=== PATIENT | female | born 1960 | race Caucasian/White ===

== ENCOUNTER 2019-02-02 11:03 | Emergency (ER) | payer MEDICARE ==
--- NOTE | 2019-02-02 15:12 | ED ---
Psychiatric Complaint - HPI Summary HPI Summary: Pt here requesting ativan as she is out of this medication and has been having panic attacks. Reports she was living in [place] and decided to go to [place] for her "well-being" as she was having difficulty healing past traumas in [place] where she was residing. Upon moving to [place] she realized this was not a place for her to heal and so decided to come back to her home state of [place] (born in [place] and raised in the [facility]). She feels like [place] is a good place for her to be however she is upset in her new home which is a "55 and older residence facility" - feels she is much younger than her cohorts and the milieu is depressing. She has been here in [place] for 9 days and has not been able to link up with a new PCP/counselor/psychiatrist but is eagerly looking to make this connection today. Currently, she reports taking Remeron ( dose unknown), hydroxyzine (dose unknown) when necessary for anxiety and Ativan 1 mg twice a day. States she has plenty of hydroxyzine and Remeron but has run out of Ativan due to increased anxiety over her travels, specifically due to traveling with a "crying cat in a crate for 24 hours" and feeling waves of panic in her new residence. She is also worried about stopping Ativan abruptly as she's been taking it daily for years. She denies suicidal or homicidal ideations - is hopeful about living in [place] and would like to get linked in with primary care and counseling services. - History Of Current Complaint Chief Complaint: EDPrescriptionNeeded Time Seen by Provider: 02/02/19 12:36 Hx Obtained From: Patient - Allergies/Home Medications Allergies/Adverse Reactions: Allergies Allergy/AdvReac Type Severity Reaction Status Date / Time No Known Allergies Allergy Verified 02/02/19 11:09 PMH/Surg Hx/FS Hx/Imm Hx Previously Healthy: Yes Psychiatric History: Reports: Hx Anxiety, Other Psychiatric Issues/Disorders - insomnia, h/o trauma per pt Infectious Disease History: No Infectious Disease History: Denies: Traveled Outside the [place] in Last 30 Days - Family History Known Family History: Positive: Unknown - Social History Occupation: Unemployed Lives: Alone Alcohol Use: Occasionally Hx Substance Use: No - per pt, takes daily rx'd ativan Substance Use Type: Reports: None Hx Tobacco Use: No Smoking Status (MU): Never Smoked Tobacco Review of Systems Constitutional: Negative Eyes: Negative ENT: Negative Cardiovascular: Negative Respiratory: Negative Gastrointestinal: Negative Positive: no symptoms reported Musculoskeletal: Negative Skin: Negative Neurological: Negative Positive: Anxious All Other Systems Reviewed And Are Negative: Yes Physical Exam Triage Information Reviewed: Yes Vital Signs On Initial Exam: Initial Vitals Temp Pulse Resp BP Pulse Ox 99.2 F 77 16 161/95 97 02/02/19 11:04 02/02/19 11:04 02/02/19 11:04 02/02/19 11:04 02/02/19 11:04 Vital Signs Reviewed: Yes Appearance: Positive: Thin - appears comfortable on stretcher in fast track - ate soup w/o difficuty; pleasant; becomes anxious and near tears when describing her journey here from [place] via [employer] - requesting medication to bridge her until she can get PCP/mental health services - would like referrals today - denies SI/HI Skin: Positive: Warm, Skin Color Reflects Adequate Perfusion, Dry Head/Face: Positive: Normal Head/Face Inspection Eyes: Positive: EOMI ENT: Positive: Hearing grossly normal, Pharynx normal - mucosa moist Respiratory/Lung Sounds: Positive: Breath Sounds Present Cardiovascular: Positive: Normal Musculoskeletal: Positive: Strength/ROM Intact Neurological: Positive: Alert, Oriented to Person Place, Time, CN Intact II-III Psychiatric: Positive: Anxious - reasonable insight, appropriate affect, anxious but consolable and denies SI/HI - hopeful to live in [place], get "Well" and would never "do that to her cat" when asked about self-harm - [place] Coma Scale Best Eye Response: 4 - Spontaneous Best Motor Response: 6 - Obeys Commands Best Verbal Response: 5 - Oriented Coma Scale Total: 15 Diagnostics - Vital Signs Vital Signs Temp Pulse Resp BP Pulse Ox 02/02/19 11:04 99.2 F 77 16 161/95 97 - Laboratory Lab Statement: Any lab studies that have been ordered have been reviewed, and results considered in the medical decision making process. Course/Dx - Course Course Of Treatment: ISTOP does not reveal any controlled substances have been filled however CA was not an option for evaluation on site. Trusting pt has good intentions and observing a clear level of anxiety, will provide short course of ativan as per pt's current dosing for a 3 day supply. She was also given a dose prior to departure as she has to take a cab straight home. She agrees to f/u w/ PCP via [facility] tomorrow for better continuous care options. She's also aware of danger s/sx of when to return to ED. She does not appear to have withdrawal signs of benzo's here today but is aware of the potential dangers. - Differential Dx/Clinical Impression Provider Diagnosis: Anxiety, Medication refill Discharge - Sign-Out/Discharge Documenting (check all that apply): Patient Departure Patient Received Moderate/Deep Sedation with Procedure: No - Discharge Plan Condition: Stable Disposition: HOME Prescriptions: LORazepam TAB(*) [Ativan 1 MG TAB (*)] 1 mg PO BID #6 tab MDD 2 Patient Education Materials: Anxiety (ED) Referrals: [facility] [Outside] [facility] [Outside] Additional Instructions: It is important that you link up with local services to establish as a new patient, have medical and mental health access. Contact the following services below tomorrow to schedule appointments for this week: *Call [facility] to establish with PCP *Call [facility] to establish with counselor and psychiatrist *If in the meantime you develop thoughts of harming yourself or others, call 911 or return to the ED - Billing Disposition and Condition Condition: STABLE Disposition: Home
[2019-02-02] MEDS ORDERED: LORazepam TAB(*) 1 MG PO ONE (15:22)
[2019-02-02 15:40] VITALS: BP 144/52
== END 2019-02-02 15:39 | disposition home or self-care (01) ==
LOC: ED 11:03
DX: F41.9 Anxiety disorder, unspecified (principal); Z76.0 Encounter for issue of repeat prescription
CPT/HCPCS: 99282; A9270-GY

== ENCOUNTER 2019-07-24 15:49 | Emergency (ER) | payer MEDICARE, MEDICAID ==
--- OUTSIDE RECORDS SUMMARY | 2019-07-24 16:10 | XMS REPORT | Continuity of Care Document ---
:1960 External Reference #:[id number] Author Name Soraya Mendoza NP (transmitted by agent of provider Moira Pettit) Address [address], [place] [address] Care Team Providers Name Role Phone Garrett Anderson MD - Hospitalist Care Team Information Adjunct Business Instructor [phone] Problems Description No Information Available Social History Type Date Description Comments Sex Unknown Tobacco Use Start: Unknown Never Smoked Cigarettes Smoking Status Reviewed: 06/03/19 Never Smoked Cigarettes ETOH Use Denies alcohol use Tobacco Use Start: Unknown Patient has never smoked Exercise Type/Frequency Exercises regularly Allergies, Adverse Reactions, Alerts Description No Known Drug Allergies Medications Active Medications SIG Qnty Indications Ordering Provider Date Remeron 1 tablet every 30tabs Garrett Anderson MD 02/05/2019 15mg Tablets night at bedtime Lorazepam 1 tablet twice a 60tabs Garrett Anderson MD 1mg Tablets day Aspirin Adult takes 2tabs qid Unknown 325mg Tablets [place] 1 by mouth every Unknown 565mg day Capsules Oregan Unknown Syriac Knotweed Unknown Grapeseed Extract Unknown Vitamin A Unknown [id number] Capsules Vitamin C 1 by mouth every Unknown 500mg day Capsules Vitamin E-200 1 by mouth every Unknown 200Unit day Capsules Vitamin D 1 by mouth every Unknown 2000Unit day Capsules L-Arginine Unknown 500mg Capsules Perlita Unknown Immunizations Description No Information Available Vital Signs Date Vital Result Comment 06/03/2019 10:52am Height 65 inches 5'5" Weight 123.00 lb Heart Rate 76 /min BP Systolic 129 mmHg BP Diastolic 78 mmHg Body Temperature 97.1 F O2 % BldC Oximetry 100 % BMI (Body Mass Index) 20.5 kg/m2 04/29/2019 11:37am Height 65 inches 5'5" Weight 119.00 lb Heart Rate 71 /min BP Systolic 117 mmHg BP Diastolic 70 mmHg Body Temperature 97.6 F O2 % BldC Oximetry 99 % BMI (Body Mass Index) 19.8 kg/m2 Results Test Acquired Date Facility Test Result H/L Range Note CBC Auto 04/12/2019 [facility] White Blood 9.6 10^3/uL Normal 3.5-10.[address] [place] [address] [phone] Red Blood Count 4.59 10^6/uL Normal 3.70-4.87 Hemoglobin 13.6 g/dL Normal 12.0-16.0 Hematocrit 41 % Normal 35-47 Mean Corpuscular Volume 89 fL Normal 80-97 Mean Corpuscular Hemoglobin 30 pg Normal 27-31 Mean Corpuscular HGB Conc 33 g/dL Normal 31-36 Red Cell Distribution Width 13 % Normal 10-15 Platelet Count 215 10^3/uL Normal 150-450 Mean Platelet Volume 9.6 fL Normal 7.4-10.4 Abs Neutrophils 8.1 10^3/uL High 1.5-7.7 Abs Lymphocytes 0.9 10^3/uL Low 1.0-4.8 Abs Monocytes 0.5 10^3/uL Normal 0-0.8 Abs Eosinophils 0.1 10^3/uL Normal 0-0.6 Abs Basophils 0.0 10^3/uL Normal 0-0.2 Abs Nucleated RBC 0.0 10^3/uL Granulocyte % 84.2 % Lymphocyte % 9.5 % Monocyte % 4.8 % Eosinophil % 1.3 % Basophil % 0.2 % Nucleated Red Blood Cells % 0.1 Laboratory test 04/12/2019 [facility] Magnesium 2.1 mg/dL Normal 1.9-2.[address] [place] [address] [phone] CRP High Sensitivity 0.28 mg/L <2.00 T3 Free 3.40 pg/mL Normal 2.5-3.9 T3 Total 107 ng/dL Normal 87-178 Thyroperoxidase AB 79.15 IU/mL High <9 Arthritis Panel 04/12/2019 [facility] Uric Acid 3.2 mg/dL Normal 2.3-6.6 [address] [place] [address] [phone] Rheumatoid Factor < 10 IU/mL Normal <15 Erythrocyte Sed Rate 4 mm/Hr Normal 0-29 Anti-Nuclear Antibody 0.1 U 1 Cyclic Citrullinated Peptide <15.6 U 2 Interpretation See Comment 3 Laboratory test 04/12/2019 [facility] Homocysteine 10 mcmol/L 4 finding [address] [place] [address] [phone] Cat Scratch 04/12/2019 [facility] Bartonella <1:128 titer <1: 12 Fever Panel [address] [facility] [place] IgG 8 [place] [address] [phone] Bartonella [place] IgM <1:20 titer <1:20 Bartonella Lewis IgG 1:256 titer Abnormal <1:128 5 Bartonella Lewis IgM <1:20 titer <1:20 6 Heavy Metal Blool 04/12/2019 [facility] Arsenic <1 ng/mL 0- 12 7 [address] [place] [address] [phone] Lead 1.3 g/dL 0.0-4.9 8 Mercury <1 ng/mL 0-9 9 Cadmium 0.3 ng/mL 0.0-4.[address] [place] [address] Guardian First Name MARISSA Guardian Last Name NICOLA Venous/Capillary Heavy Metals Venous Patient Race WHITE Submitting Laboratory 11 Transglutaminase Igg 04/12/2019 [facility] Tissue <1.2 12 & Iga [address] [facility] Transglutaminase IgA U/[place] [address] Ab [phone] Tissue Transglutaminase IgG Ab 1.4 U/mL 13 Anti Gliadin Igg And Iga 04/12/2019 [facility] Gliadin IgG < 10.0 U 14 AB [address] [place] [address] [phone] Gliadin IgA <10.0 U 15 Laboratory test 04/12/2019 [facility] Vitamin A 74.4 g/dL 32.5-78.[address] (Retinol) [place] [address] [phone] T3 Reverse 13 ng/dL 10-24 17 Celiac Hla 04/12/2019 [facility] [id number] SEE BELOW [address] [place] [address] [phone] [id number] SEE BELOW 19 Celiac Gene Pairs Present? Equivocal Celiac Gene Interpretation See Comment 20 Laboratory test 04/12/2019 [facility] Vitamin E 11.9 mg/L 5.5 - 17.[address] [place] [address] [phone] Complement C4a Main Lab Only 1563 ng/mL 0-2830 22 Laboratory test 04/07/2019 [facility] Miscellaneous Test < pending> finding [address] [place] [address] [phone] Laboratory test 04/07/2019 [facility] Vitamin D Total <pending> finding [address] 25(Oh) [place] [address] [phone] Thyroperoxidase AB <pending> T3 Free <pending> T3 Reverse <pending> T3 Total <pending> Homocysteine <pending> Complement C4a Main Lab Only <pending> Vitamin E Level <pending> Vitamin A (Retinol) <pending> Laboratory test finding 04/07/2019 [facility] Zinc Serum < pending> [address] [place] [address] [phone] Copper, Serum <pending> Laboratory test 04/07/2019 [facility] CRP High <pending> finding [address] [place] [address] [phone] CBC Auto Diff 03/21/2019 [facility] White Blood 4.6 10^3/uL Normal 3.5- [address] Count 10.8 [place] [address] [phone] Red Blood Count 4.95 10^6/uL High 3.70-4.87 Hemoglobin 14.8 g/dL Normal 12.0-16.0 Hematocrit 43 % Normal 35-47 Mean Corpuscular Volume 87 fL Normal 80-97 Mean Corpuscular Hemoglobin 30 pg Normal 27-31 Mean Corpuscular HGB Conc 34 g/dL Normal 31-36 Red Cell Distribution Width 13 % Normal 10-15 Platelet Count 246 10^3/uL Normal 150-450 Mean Platelet Volume 10.0 fL Normal 7.4-10.4 Abs Neutrophils 2.9 10^3/uL Normal 1.5-7.7 Abs Lymphocytes 1.3 10^3/uL Normal 1.0-4.8 Abs Monocytes 0.3 10^3/uL Normal 0-0.8 Abs Eosinophils 0.1 10^3/uL Normal 0-0.6 Abs Basophils 0.0 10^3/uL Normal 0-0.2 Abs Nucleated RBC 0.0 10^3/uL Granulocyte % 62.0 % Lymphocyte % 27.4 % Monocyte % 6.8 % Eosinophil % 2.8 % Basophil % 1.0 % Nucleated Red Blood Cells % 0.1 CBC Auto 03/01/2019 [facility] White Blood 2.8 10^3/uL Low 3.5 -10.[address] [place] [address] [phone] Red Blood Count 4.43 10^6/uL Normal 3.70-4.87 Hemoglobin 13.4 g/dL Normal 12.0-16.0 Hematocrit 39 % Normal 35-47 Mean Corpuscular Volume 88 fL Normal 80-97 Mean Corpuscular Hemoglobin 30 pg Normal 27-31 Mean Corpuscular HGB Conc 35 g/dL Normal 31-36 Red Cell Distribution Width 13 % Normal 10-15 Platelet Count 146 10^3/uL Low 150-450 Mean Platelet Volume 10.2 fL Normal 7.4-10.4 Abs Neutrophils 1.5 10^3/uL Normal 1.5-7.7 Abs Lymphocytes 0.9 10^3/uL Low 1.0-4.8 Abs Monocytes 0.3 10^3/uL Normal 0-0.8 Abs Eosinophils 0.1 10^3/uL Normal 0-0.6 Abs Basophils 0.0 10^3/uL Normal 0-0.2 Abs Nucleated RBC 0.0 10^3/uL Granulocyte % 55.1 % Lymphocyte % 31.9 % Monocyte % 9.2 % Eosinophil % 2.7 % Basophil % 1.1 % Nucleated Red Blood Cells % 0.1 Comp Metabolic 03/01/2019 [facility] Sodium 142 mmol/L Normal 135-[address] [place], [place] [address] [phone] Potassium 4.4 mmol/L Normal 3.5-5.0 Chloride 106 mmol/L Normal 101-111 Co2 Carbon Dioxide 29 mmol/L Normal 22-32 Anion Gap 7 mmol/L Normal 2-11 Glucose 74 mg/dL Normal 70-100 Blood Urea Nitrogen 15 mg/dL Normal 6-24 Creatinine 0.91 mg/dL Normal 0.51-0.95 BUN/Creatinine Ratio 16.5 Normal 8-20 Calcium 8.9 mg/dL Normal 8.6-10.3 Total Protein 5.8 g/dL Low 6.4-8.9 Albumin 4.1 g/dL Normal 3.2-5.2 Globulin 1.7 g/dL Low 2-4 Albumin/Globulin Ratio 2.4 Normal 1-3 Total Bilirubin 0.50 mg/dL Normal 0.2-1.0 Alkaline Phosphatase 53 U/L Normal 34-104 Alt 12 U/L Normal 7-52 Ast 16 U/L Normal 13-39 Egfr Non- 63.5 >60 Egfr 76.8 >60 23 Laboratory test 03/01/2019 [facility] Lyme Screen Negative Negative [address] W/ [place] [address] WB [phone] Erythrocyte Sed Rate 1 mm/Hr Normal 0-29 TSH (Thyroid Stim Horm) 2.25 mcIU/mL Normal 0.34-5.60 Laboratory test 02/05/2019 [facility] Vitamin B12 455 pg/mL Normal 180-914 25 [place] [address] [phone] Lipid Profile 02/05/2019 [facility] Triglycerides 105 mg/dL 26 (Trig/Chol/HDL) [place] [address] [phone] Cholesterol 173 mg/dL 27 HDL Cholesterol 78.1 mg/dL 28 LDL Cholesterol 74 mg/dL 29 Hepatitis C Antibody 02/05/2019 [facility] HCV Index 0.00 s/c [address] [place] [address] [phone] Hepatitis C Antibody Negative Negative Laboratory test 02/05/2019 [facility] TSH (Thyroid <pending> finding Stim Horm) [place] [address] [phone] Erythrocyte Sed Rate <pending> Vitamin D Total 25(Oh) <pending> Lyme Screen W/ Reflex To WB <pending> 1 REFERENCE VALUE <=1.0 (Negative) 2 REFERENCE VALUE <20.0 (Negative) 3 Tests for antibodies to dsDNA and SAMIR antigens are not performed automatically unless the CHIRAG result is > or = 3.0 U. Studies performed at [facility] indicate that positive CHIRAG results <3.0 U are rarely accompanied by positive second order tests. Test Performed by: [facility] [employer] - [facility] [address] [place] [address] Emergency Dept Tech: Thong Manzo M.D. Ph.D.; CLIA# [id number] 4 REFERENCE VALUE <=13 (Fasting) ADDITIONAL INFORMATION This test was developed and its performance characteristics determined by [facility] in a manner consistent with CLIA requirements. This test has not been cleared or approved by the U.S. Food and Drug Administration. Test Performed by: [facility] [employer] - [address] [address] Emergency Dept Tech: Thong Manzo M.D. Ph.D.; CLIA# [id number] 5 Results suggest recent infection. 6 ADDITIONAL INFORMATION This test was developed and its performance characteristics determined by [facility] in a manner consistent with CLIA requirements. This test has not been cleared or approved by the U.S. Food and Drug Administration. Test Performed by: [facility] [place] [address] Emergency Dept Tech: Thong Manzo M.D. Ph.D.; CLIA# [id number] 7 ADDITIONAL INFORMATION This test was developed and its performance characteristics determined by [facility] in a manner consistent with CLIA requirements. This test has not been cleared or approved by the U.S. Food and Drug Administration. 8 ADDITIONAL INFORMATION Testing performed by Inductively Coupled Plasma-Mass Spectrometry (ICP-MS). This test was developed and its performance characteristics determined by [facility] in a manner consistent with CLIA requirements. This test has not been cleared or approved by the U.S. Food and Drug Administration. 9 ADDITIONAL INFORMATION This test was developed and its performance characteristics determined by [facility] in a manner consistent with CLIA requirements. This test has not been cleared or approved by the U.S. Food and Drug Administration. 10 ADDITIONAL INFORMATION This test was developed and its performance characteristics determined by [facility] in a manner consistent with CLIA requirements. This test has not been cleared or approved by the U.S. Food and Drug Administration. 11 Test Performed by: [facility] [employer] - [address] [address] Emergency Dept Tech: Thong Manzo M.D. Ph.D.; CLIA# [id number] 12 REFERENCE VALUE <4.0 (Negative) 13 REFERENCE VALUE <6.0 (Negative) Test Performed by: [facility] [place] [address] Emergency Dept Tech: Thong Manzo M.D. Ph.D.; CLIA# [id number] 14 REFERENCE VALUE <20.0 (Negative) Test Performed by: [facility] [place] [address] Emergency Dept Tech: Thong Manzo M.D. Ph.D.; CLIA# [id number] 15 REFERENCE VALUE <20.0 (Negative) 16 ADDITIONAL INFORMATION This test was developed and its performance characteristics determined by [facility] in a manner consistent with CLIA requirements. This test has not been cleared or approved by the U.S. Food and Drug Administration. Test Performed by: [facility] [place] [address] Emergency Dept Tech: Thong Manzo M.D. Ph.D.; CLIA# [id number] 17 ADDITIONAL INFORMATION This test was developed and its performance characteristics determined by [facility] in a manner consistent with CLIA requirements. This test has not been cleared or approved by the U.S. Food and Drug Administration. Test Performed by: [facility] [place] [address] Emergency Dept Tech: Thong Manzo M.D. Ph.D.; CLIA# [id number] 18 RESULT: 01,02:01 REFERENCE VALUE Not Applicable 19 RESULT: 02:02,05:01 DQ Serologic Equivalent: 2,5 REFERENCE VALUE Not Applicable 20 While the patient lacks the gene pairs usually seen in celiac disease, there are rare exceptions in which celiac disease can occur with only one half of the gene pair (1% of all celiac) making celiac disease very unlikely. However, these genes can also be present in the normal population. ADDITIONAL INFORMATION Method: Molecular typing of HLA antigens performed using reverse SSOP and/or SSP methods, reported as serological equivalents and low to medium resolution molecular values. Test Performed by: [facility] [place] [address] Emergency Dept Tech: Thong Manzo M.D. Ph.D.; CLIA# [id number] 21 ADDITIONAL INFORMATION This test was developed and its performance characteristics determined by [facility] in a manner consistent with CLIA requirements. This test has not been cleared or approved by the U.S. Food and Drug Administration. Test Performed by: [facility] - [facility] [address] [place] [address] Emergency Dept Tech: Thong Manzo M.D. Ph.D.; CLIA# [id number] 22 ADDITIONAL INFORMATION This test uses a kit/reagent designated by the job placement specialist as for research use, not for clinical use. The performance characteristics of this test have been validated by [facility]. It has not been cleared or approved by the U.S. Food and Drug Administration. The results are not intended to be used as the sole means for clinical diagnosis or patient management decisions. This laboratory is certified under the Clinical Laboratory Improvement Amendments of 1988 (CLIA-88) as qualified to perform high complexity clinical laboratory testing. Test Performed by: [facility] [address] [place] [id number] 23 Because ethnic data is not always readily available, this report includes an eGFR for both -Americans and non- Americans. The National Kidney Disease Education Program (NKDEP) does not endorse the use of the MDRD equation for patients that are not between the ages of 18 and 70, are , have extremes of body size, muscle mass, or nutritional status, or are non- or non-. According to the National Kidney Foundation, irrespective of diagnosis, the stage of the disease is based on the level of kidney function: Stage Description GFR(mL/min/1.73 m(2)) 1 Kidney damage with normal or decreased GFR 90 2 Kidney damage with mild decrease in GFR 60-89 3 Moderate decrease in GFR 30-59 4 Severe decrease in GFR 15-29 5 Kidney failure <15 (or dialysis) 24 PT DOESNT WANT TO HAVE VD25 DONE, DUE TO ABN. [id number] 25 Normal Range 180 to 914 Indeterminate Range 145 to 180 Deficient Range <145 26 Desirable: <150 Borderline High: 150-199 High: 200-499 Very High: >500 27 Desirable: <200 Borderline High: 200-239 High: >239 28 Low: <40 Desirable: 40-60 High: >60 29 Desirable: <100 Near Optimal: 100-129 Borderline High: 130-159 High: 160-189 Very High: >189 Procedures Description No Information Available Medical Devices Description No Information Available Encounters Type Date Location Provider Dx Diagnosis Office Visit 04/29/2019 [facility] Internal Cameron Gay NP R53.82 Chronic fatigue , 11:40a Medicine - Ccmob unspecified G89.4 Chronic pain syndrome Office Visit 04/07/2019 1:00p [facility] Soraya Mendoza, R53.82 Chronic fatigue, [facility] DUNG unspecified G89.4 Chronic pain syndrome K58.8 Other irritable bowel syndrome F41.9 Anxiety disorder, unspecified R51 Headache Office Visit 03/25/2019 12:00p [facility] Internal Garrett Anderson MD F41.1 Generalized anxiety Medicine - Suite disorder R R53.83 Other fatigue F43.12 Post-traumatic stress disorder, chronic R63.6 Underweight Z12.11 Encounter for screening for malignant neoplasm of colon Office Visit 02/05/2019 8:00a [facility] Internal Garrett Anderson MD F41.1 Generalized anxiety Medicine - Suite disorder R F39 Unspecified mood [affective] disorder R53.83 Other fatigue Z00.01 Encounter for general adult medical exam w abnormal findings F43.12 Post-traumatic stress disorder, chronic Z13.220 Encounter for screening for lipoid disorders Z11.59 Encounter for screening for other viral diseases Z12.4 Encounter for screening for malignant neoplasm of cervix Assessments Date Code Description Provider 06/03/2019 R53.82 Chronic fatigue, unspecified Soraya Mendoza, [employer] 06/03/2019 G89.4 Chronic pain syndrome Soraya Mendoza, [employer] 04/29/2019 R53.82 Chronic fatigue, unspecified Cameron Victor Hugo, [employer] 04/29/2019 G89.4 Chronic pain syndrome Cameron Victor Hugo, [employer] 04/07/2019 R53.82 Chronic fatigue, unspecified Soraya Mendoza, [employer] TE[employer] LEADER 04/07/2019 G89.4 Chronic pain syndrome Soraya Mendoza, [employer] TE[employer] LEADER 04/07/2019 K58.8 Other irritable bowel syndrome Soraya Mendoza, [employer] LEADER 04/07/2019 F41.9 Anxiety disorder, unspecified Soraya Mendoza, [employer] LEADER 04/07/2019 R51 Headache Soraya Mendoza, [employer] LEADER 03/25/2019 F41.1 Generalized anxiety disorder Garrett Anderson MD 03/25/2019 R53.83 Other fatigue Garrett Anderson MD 03/25/2019 F43.12 Post-traumatic stress disorder, chronic Garrett Anderson MD 03/25/2019 R63.6 Underweight Garrett Anderson MD 03/25/2019 Z12.11 Encounter for screening for malignant neoplasm Garrett Anderson MD of colon 02/05/2019 F41.1 Generalized anxiety disorder Garrett Anderson MD 02/05/2019 F39 Unspecified mood [affective] disorder Garrett Anderson MD 02/05/2019 R53.83 Other fatigue Garrett Anderson MD 02/05/2019 Z00.01 Encounter for general adult medical Garrett Anderson MD examination with abnorma 02/05/2019 F43.12 Post-traumatic stress disorder, chronic Garrett Anderson MD 02/05/2019 Z13.220 Encounter for screening for lipoid disorders Garrett Anderson MD 02/05/2019 Z11.59 Encounter for screening for other viral Garrett Anderson MD diseases 02/05/2019 Z12.4 Encounter for screening for malignant neoplasm Garrett Anderson MD of cervix Plan of Treatment Future Appointment(s):06/17/2019 1:20 pm - Kit Blevins M.D. at [facility]/12/2019 - Soraya Mendoza, NPR53.82 Chronic fatigue, unspecifiedFollow up:follow up in 4-6 weeks Recommend follow up with Barbara Bryant NP or Gina Wynne for annual Pap.Recommendations:Continue Wahls Protocol - increasing protein, increase healthy fats - focus on 8-10 servings vegetables/day. Smoothies with vegetables/greens and clean protein powder (hemp protein) Recommend LDN (low dose naltrexone) - do research this could be very helpful Recommend Biocidin protocol - I will send this through SHADOW Recommend: B complex (methylated forms) Fish oil or Krill oil - EPA/ DHAG89.4 Chronic pain syndromeRecommendations:Recommend using your medical cannabis script - Continue Anti-inflammatory diet Functional Status Description No Information Available Mental Status Description No Information Available Referrals Refer to Dr Reason for Referral Status Appt Date Kit Blevins MD positive Bartonella Sent 06/17/[address] [place] [address] [place] [address] [phone] Margarito Nugent MD Sent 04/07/2019 [address], [place] [address] [phone]
--- OUTSIDE RECORDS SUMMARY | 2019-07-24 16:10 | XMS REPORT ---
:1960 Author Organization [facility] Care Team Providers Name Role Phone Nory Sotelo Primary Care Physician Unavailable Allergies, Adverse Reactions, Alerts Allergy Code CodeSystem Reaction Severity Criticality Status Start Substance Date nkda Moderate Active Medications Medication Medication Medication Start Stop Route Dose Status Fill Code CodeSystem Date Date Instructions Remeron 731452 RxNorm 2019- oral 15 mg 1 completed Take 1 tablet 03-04 tablet at bedtime at for 30 day(s) bedtime lorazepam RxNorm 2019- oral 1 mg completed for 3 02-02 tablet day(s) mirtazapine 527854 RxNorm 2019- oral 15 mg completed for 30 04-08 tablet day(s) lorazepam RxNorm 2019- oral 1 mg completed for 3 02-02- tablet day(s) lorazepam RxNorm 2019- oral 1 mg 1 completed Take 1 tablet 04-03 tablet by mouth three three times a times a day as needed day for 5 day(s) lorazepam RxNorm 2019- oral 1 mg active for 30 04-08-14 tablet day(s) mirtazapine 606516 RxNorm 2019- oral 15 mg 1 active Take 1 1/2 04-08 1/2 tablet by tablet mouth at at bedtime for bedtime 30 day(s) lorazepam RxNorm 2019- oral 1 mg completed for 3 02-02- tablet day(s) lorazepam RxNorm 2019- oral 1 mg completed for 30 03-04 09-12 tablet day(s) Problems Problem Name Code CodeSystem Alternate Alternate Start End Status Narrative Code CodeSystem Date Date Post-traumat 60490211 SNOMED-CT Active ic stress 8-05 disorder, unspecified Recurrent 06198739 SNOMED-CT 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, current episode moderate Relevant diagnostic tests/laboratory data Narrative No Information Procedures Procedure Code CodeSystem Target Date of Status Service Device Device Device Name Site Procedure Delivery Code Name UID Location Psychotherap [id number] SNOMED-CT () 2019-04-18 complete Mental y, 45 04 d Health- minutes with [place] patient [address], [phone] Psychotherap [id number] SNOMED-CT () 2019-03-04 complete Mental y, 45 04 d Health- minutes with [place] patient [address], [phone] Psychotherap [id number] SNOMED-CT () 2019-03-27 complete Mental y, 45 04 d Health- minutes with [place] patient [address], [phone] Psychotherap [id number] SNOMED-CT () 2019-05-13 complete Mental y, 45 04 d Health- minutes with [place] patient [address], [phone] Psychiatric [id number] SNOMED-CT () 2019-03-04 complete Mental diagnostic 85 d Health- evaluation [place] with [address], [phone] [phone] Office or [id number] SNOMED-CT () 2019-04-08 complete Mental other 7 d Health- outpatient [place] visit for [address] established [id number] patient, [phone] which requires at least 2 of these 3 gaffney components: An expanded problem focused history; An expanded problem focused examination; Medical decision making of [place] Office [place] [id number] SNOMED-CT () 2019-05-06 complete Mental other 6 d Health- outpatient [place] visit for [address], established [phone] patient, [phone] which requires at least 2 of these 3 gaffney components: A problem focused history; A problem focused examination; Straightforw dereck medical decision making. Counselin Office or [id number] SNOMED-CT () 2019-06-05 complete Mental other 6 d Health- outpatient [place] visit for [address], management [place], of an [place], established [phone] patient, [phone] which requires at least 2 of these 3 gaffney components: A problem focused history; A problem focused examination; Straightforw dereck medical decision making. Counselin SNOMED-CT () 2019-04-08 complete Mental d Health[address], [phone] SNOMED-CT () 2019-05-02 complete Mental d Health[address], [id number] SNOMED-CT () 2019-02-10 [facility] Mental d [address], [id number] [phone] Encounters/Encounter Diagnoses Encounter Name Encounter Diagnosis Diagnosis Diagnosis Date of Service Code Code Name CodeSystem Diagnosis Delivery Location [facility] [id number] Post-traumati SNOMED-CT 2019-06-12 Behavioral Individual 30 c stress Health min disorder, Clinic , , unspecified , Vital Signs No Information Social History Element Description Description Start End Code CodeSystem AdditionalInfo Date Date SexAssignedAtBirth Female 1-0 F AdministrativeGender 4-13 Hospital Discharge Instructions Reason For Referral Medical Equipment FDA Assessments
--- OUTSIDE RECORDS SUMMARY | 2019-07-24 16:10 | XMS REPORT | Continuity of Care Document ---
:1960 External Reference #:[id number] Author Name Kit Blevins M.D. (transmitted by agent of provider Savita Yepez ) Address [address] [place] [id number] Care Team Providers Name Role Phone Garrett Anderson MD - Hospitalist Care Team Information Forestry Support Specialist [phone] Problems Description No Information Available Social History Type Date Description Comments Sex Unknown Tobacco Use Start: Unknown Never Smoked Cigarettes Smoking Status Reviewed: 06/17/19 Never Smoked Cigarettes ETOH Use Denies alcohol use Tobacco Use Start: Unknown Patient has never smoked Exercise Type/Frequency Exercises regularly Allergies, Adverse Reactions, Alerts Description No Known Drug Allergies Medications Active Medications SIG Qnty Indications Ordering Provider Date Doxycycline Hyclate 1 cap by mouth 30caps R76.8 Kit Kinney 06/17/2019 twice a day with Jose Blevins 100mg Capsules food Remeron 1 tablet every 30tabs Garrett Anderson MD 02/05/2019 15mg Tablets night at bedtime Lorazepam 1 tablet twice a 60tabs Garrett Anderson MD 1mg Tablets day Aspirin Adult takes 2tabs qid Unknown 325mg Tablets [place] 1 by mouth every Unknown 565mg day Capsules Oregan Unknown Polish Knotweed Unknown Grapeseed Extract Unknown Vitamin A Unknown [id number] Capsules Vitamin C 1 by mouth every Unknown 500mg day Capsules Vitamin E-200 1 by mouth every Unknown 200Unit day Capsules Vitamin D 1 by mouth every Unknown 2000Unit day Capsules L-Arginine Unknown 500mg Capsules Perlita Unknown Immunizations Description No Information Available Vital Signs Date Vital Result Comment 06/17/2019 9:16am Height 65 inches 5'5" Weight 121.38 lb Heart Rate 80 /min BP Systolic Sitting 114 mmHg BP Diastolic Sitting 80 mmHg Respiratory Rate 14 /min Body Temperature 96.9 F BMI (Body Mass Index) 20.2 kg/m2 06/03/2019 10:52am Height 65 inches 5'5" Weight 123.00 lb Heart Rate 76 /min BP Systolic 129 mmHg BP Diastolic 78 mmHg Body Temperature 97.1 F O2 % BldC Oximetry 100 % BMI (Body Mass Index) 20.5 kg/m2 Results Test Acquired Date Facility Test Result H/L Range Note CBC Auto 04/12/2019 [facility] White Blood 9.6 10^3/uL Normal 3.5-10.[address] [place] [address] [phone] Red Blood Count 4.59 10^6/uL Normal 3.70-4.87 [...] Blood Cells % 0.1 Laboratory test 04/12/2019 [facility] Magnesium 2.1 mg/dL Normal 1.9-2.[address] [place] [address] [phone] CRP High Sensitivity 0.28 mg/L <2.00 T3 Free 3.40 pg/mL Normal 2.5-3.9 T3 Total 107 ng/dL Normal 87-178 Thyroperoxidase AB 79.15 IU/mL High <9 Arthritis Panel 04/12/2019 [facility] Uric Acid 3.2 mg/dL Normal 2.3-6.6 [address] [place] [address] [phone] Rheumatoid Factor < 10 IU/mL Normal <15 Erythrocyte Sed Rate 4 mm/Hr Normal 0-29 Anti-Nuclear Antibody 0.1 U 1 Cyclic Citrullinated Peptide <15.6 U 2 Interpretation See Comment 3 Laboratory test 04/12/2019 [facility] Homocysteine 10 mcmol/L 4 finding [address] [place] [address] [phone] Cat Scratch 04/12/2019 [facility] Bartonella <1:128 titer <1: 12 Fever Panel 101 [facility] [place] IgG [address] [place] [address] [phone] Bartonella [place] IgM <1:20 titer <1:20 Bartonella Lewis IgG 1:256 titer Abnormal <1:128 5 Bartonella Lewis IgM <1:20 titer <1:20 6 Heavy Metal Blool 04/12/2019 [facility] Arsenic <1 ng/mL 0- 12 7 [address] [place] [address] [phone] Lead 1.3 g/dL 0.0-4.9 8 Mercury <1 ng/mL 0-9 9 Cadmium 0.3 ng/mL 0.0-4.[address] [place] [address] [place] [address] Guardian First Name MARISSA Guardian Last Name NICOLA Venous/Capillary Heavy Metals Venous Patient Race WHITE Submitting Laboratory 11 Transglutaminase Igg 04/12/2019 [facility] Tissue <1.2 12 & Iga [address] [facility] Transglutaminase IgA U/[place] [address] Ab [phone] Tissue Transglutaminase IgG Ab 1.4 U/mL 13 Anti Gliadin Igg And Iga 04/12/2019 [facility] Gliadin IgG < 10.0 U [address] [place] [address] [phone] Gliadin IgA <10.0 U 15 Laboratory test 04/12/2019 [facility] Vitamin A 74.4 g/dL 32.5-78.[address] (Retinol) [place] [address] [phone] T3 Reverse 13 ng/dL 10-24 17 Celiac Hla 04/12/2019 [facility] Hla-Dqa1 SEE BELOW [address] [place] [address] [phone] Hla-DQB1 SEE BELOW 19 Celiac Gene Pairs Present? Equivocal Celiac Gene Interpretation See Comment 20 Laboratory test 04/12/2019 [facility] Vitamin E 11.9 mg/L 5.5 - 17.[address] [place] [address] [phone] Complement C4a Main Lab Only 1563 ng/mL 0-2830 22 Laboratory test 04/07/2019 [facility] Miscellaneous Test < pending> finding [address] [place] [address] [phone] Laboratory test 04/07/2019 [facility] Vitamin D Total <pending> finding [address] 25(Oh) [place] [address] [phone] Thyroperoxidase AB <pending> T3 Free <pending> T3 Reverse <pending> T3 Total <pending> Homocysteine <pending> Complement C4a Main Lab Only <pending> Vitamin E Level <pending> Vitamin A (Retinol) <pending> Laboratory test finding 04/07/2019 [facility] Zinc Serum < pending> [address] [place] [address] [phone] Copper, Serum <pending> Laboratory test 04/07/2019 [facility] CRP High <pending> finding [address] [place] [address] [phone] CBC Auto Diff 03/21/2019 [facility] White Blood 4.6 10^3/uL Normal 3.5- [address] Count 10.8 [place] [address] [phone] Red Blood Count 4.95 10^6/uL High 3.70-4.87 [...] Blood Cells % 0.1 CBC Auto 03/01/2019 [facility] White Blood 2.8 10^3/uL Low 3.5 -10.[address] Count [place], [place] [id number] [phone] Red Blood Count 4.43 10^6/uL Normal 3.70-4.87 [...] Blood Cells % 0.1 Comp Metabolic 03/01/2019 [facility] Sodium 142 mmol/L Normal 135-145 Panel 101 [place] [address] [phone] Potassium 4.4 mmol/L Normal 3.5-5.0 Chloride 106 [...] Egfr 76.8 >60 23 Laboratory test 03/01/2019 [facility] Lyme Screen Negative Negative [address] W/ [place] [address] WB [phone] Erythrocyte Sed Rate 1 mm/Hr Normal 0-29 TSH (Thyroid Stim Horm) 2.25 mcIU/mL Normal 0.34-5.60 Laboratory test 02/05/2019 [facility] Vitamin B12 455 pg/mL Normal 180-914 25 finding [address] [place] [address] [phone] Lipid Profile 02/05/2019 [facility] Triglycerides 105 mg/dL 26 (Trig/Chol/HDL) [address] [place] [address] [phone] Cholesterol 173 mg/dL 27 HDL Cholesterol 78.1 mg/dL 28 LDL Cholesterol 74 mg/dL 29 Hepatitis C Antibody 02/05/2019 [facility] HCV Index 0.00 s/c [address] [place] [address] [phone] Hepatitis C Antibody Negative Negative Laboratory test 02/05/2019 [facility] TSH (Thyroid <pending> finding [address] Stim Horm) [place] [address] [phone] Erythrocyte Sed Rate <pending> Vitamin D Total 25(Oh) <pending> Lyme Screen W/ Reflex To WB <pending> 1 REFERENCE VALUE <=1.0 (Negative) 2 REFERENCE VALUE <20.0 (Negative) 3 Tests for antibodies to dsDNA and SAMIR antigens are not performed automatically unless the CHIRAG result is > or = 3.0 U. Studies performed at [facility] indicate that positive CHIRAG results <3.0 U are rarely accompanied by positive second order tests. Test Performed by: [facility] [address] [place] [address] Professor Of Engineering: Thong Manzo M.D. Ph.D.; CLIA# [id number] 4 REFERENCE VALUE <=13 (Fasting) ADDITIONAL INFORMATION This test was developed and its performance characteristics determined by [facility] in a manner consistent with CLIA requirements. This test has not been cleared or approved by the U.S. Food and Drug Administration. Test Performed by: [facility] [address] [place] [address] Professor Of Engineering: Thong Manzo M.D. Ph.D.; CLIA# [id number] 5 Results suggest recent infection. 6 ADDITIONAL INFORMATION This test was developed and its performance characteristics determined by [facility] in a manner consistent with CLIA requirements. This test has not been cleared or approved by the U.S. Food and Drug Administration. Test Performed by: [facility] [place] [address] Professor Of Engineering: Thong Manzo M.D. Ph.D.; CLIA# [id number] 7 ADDITIONAL INFORMATION This test was developed and its performance characteristics determined by [facility] in a manner consistent with CLIA requirements. This test has not been cleared or approved by the U.S. Food and Drug Administration. 8 ADDITIONAL INFORMATION Testing performed by Inductively Coupled Plasma-Mass Spectrometry (ICP-MS). This test was developed and its performance characteristics determined by [facility] in a manner consistent with CLIA requirements. This test has not been cleared or approved by the U.S. Food and Drug Administration. 9 ADDITIONAL INFORMATION This test was developed and its performance characteristics determined by [facility] in a manner consistent with CLIA requirements. This test has not been cleared or approved by the U.S. Food and Drug Administration. 10 ADDITIONAL INFORMATION This test was developed and its performance characteristics determined by [facility] in a manner consistent with CLIA requirements. This test has not been cleared or approved by the U.S. Food and Drug Administration. 11 Test Performed by: [facility] [place] [address] Professor Of Engineering: Thong Manzo M.D. Ph.D.; CLIA# [id number] 12 REFERENCE VALUE <4.0 (Negative) 13 REFERENCE VALUE <6.0 (Negative) Test Performed by: [facility] [employer] [address] [place] [address] Professor Of Engineering: Thong Manzo M.D. Ph.D.; CLIA# [id number] 14 REFERENCE VALUE <20.0 (Negative) Test Performed by: [facility] [employer] [address] Professor Of Engineering: Thong Manzo M.D. Ph.D.; CLIA# [id number] 15 REFERENCE VALUE <20.0 (Negative) 16 ADDITIONAL INFORMATION This test was developed and its performance characteristics determined by [facility] in a manner consistent with CLIA requirements. This test has not been cleared or approved by the U.S. Food and Drug Administration. Test Performed by: [facility] [place] [address] Professor Of Engineering: Thong Manzo M.D. Ph.D.; CLIA# [id number] 17 ADDITIONAL INFORMATION This test was developed and its performance characteristics determined by [facility] in a manner consistent with CLIA requirements. This test has not been cleared or approved by the U.S. Food and Drug Administration. Test Performed by: [facility] [place] [address] Professor Of Engineering: Thong Manzo M.D. Ph.D.; CLIA# [id number] 18 RESULT: 01,02:01 REFERENCE VALUE Not Applicable [...] medium resolution molecular values. Test Performed by: [facility] - [address] [address] Professor Of Engineering: Thong Manzo M.D. Ph.D.; CLIA# [id number] 21 ADDITIONAL INFORMATION This test was developed and its performance characteristics determined by [facility] in a manner consistent with CLIA requirements. This test has not been cleared or approved by the U.S. Food and Drug Administration. Test Performed by: [facility] [place] [address] Professor Of Engineering: Thong Manzo M.D. Ph.D.; CLIA# [id number] 22 ADDITIONAL INFORMATION This test uses a kit/reagent designated by the belting inspector as for research use, not for clinical use. The performance characteristics of this test have been validated by [facility]. It has not been cleared or approved by the U.S. Food and Drug Administration. The results are not intended to be used as the sole means for clinical diagnosis or patient management decisions. This laboratory is certified under the Clinical Laboratory Improvement Amendments of 1988 (CLIA-88) as qualified to perform high complexity clinical laboratory testing. Test Performed by: [facility] [address] [place] [id number] 23 Because ethnic data is not always [...] TO HAVE VD25 DONE, DUE TO ABN. [id number] 25 Normal Range 180 to 914 Indeterminate [...] Location Provider Dx Diagnosis Office Visit 04/29/2019 [employer] Internal Cameron Gay NP R53.82 Chronic fatigue , 11:40a Medicine - Ccmob unspecified G89.4 Chronic pain syndrome Office Visit 04/07/2019 1:00p [facility] Soraya Mendoza, R53.82 Chronic fatigue, [facility] LAMINATION ASSEMBLER unspecified G89.4 Chronic pain syndrome K58.8 Other irritable bowel syndrome F41.9 Anxiety disorder, unspecified R51 Headache Office Visit 03/25/2019 12:00p [facility] Internal Garrett Anderson MD F41.1 Generalized anxiety Medicine - Suite disorder R R53.83 Other fatigue F43.12 Post-traumatic stress disorder, chronic R63.6 Underweight Z12.11 Encounter for screening for malignant neoplasm of colon Office Visit 02/05/2019 8:00a [facility] Internal Garrett Anderson MD F41.1 Generalized anxiety [...] of cervix Assessments Date Code Description Provider 06/17/2019 R76.8 Other specified abnormal immunological Kit Blevins M.D. findings in serum 06/03/2019 R53.82 Chronic fatigue, unspecified Soryaa Mendoza, LAMINATION ASSEMBLER 06/03/2019 G89.4 Chronic pain syndrome Soraya Mendoza, LAMINATION ASSEMBLER 04/29/2019 R53.82 Chronic fatigue, unspecified Cameron Victor Hugo, LAMINATION ASSEMBLER 04/29/2019 G89.4 Chronic pain syndrome Cameron Victor Hugo, LAMINATION ASSEMBLER 04/07/2019 R53.82 Chronic fatigue, unspecified Soraya Mendoza, LAMINATION ASSEMBLER 04/07/2019 G89.4 Chronic pain syndrome Soraya Mendoza, LAMINATION ASSEMBLER 04/07/2019 K58.8 Other irritable bowel syndrome Soraya Mendoza, LAMINATION ASSEMBLER 04/07/2019 F41.9 Anxiety disorder, unspecified Soraya Mendoza, LAMINATION ASSEMBLER 04/07/2019 R51 Headache Soraya Kelly, LAMINATION ASSEMBLER 03/25/2019 F41.1 Generalized anxiety disorder Garrett Anderson MD 03/25/2019 R53.83 Other fatigue Garrett Anderson MD 03/25/2019 F43.12 Post-traumatic stress disorder, chronic Garrett Anderson MD 03/25/2019 R63.6 Underweight Garrett Anderson, MD 03/25/2019 Z12.11 Encounter for screening for malignant Garrett Anderson MD neoplasm of colon 02/05/2019 F41.1 Generalized anxiety disorder Garrett Anderson MD 02/05/2019 F39 Unspecified mood [affective] disorder Garrett Anderson MD 02/05/2019 R53.83 Other fatigue Garrett Anderson MD 02/05/2019 Z00.01 Encounter for general adult medical Garrett Anderson MD examination with abnorma 02/05/2019 F43.12 Post-traumatic stress disorder, chronic Garrett Anderson MD 02/05/2019 Z13.220 Encounter for screening for lipoid Garrett Anderson MD disorders 02/05/2019 Z11.59 Encounter for screening for other viral Garrett Anderson MD diseases 02/05/2019 Z12.4 Encounter for screening for malignant Garrett Anderson MD neoplasm of cervix Plan of Treatment 06/03/2019 - Soraya Mendoza, NPR53.82 Chronic fatigue, unspecifiedFollow up: follow up in 4-6 weeks Recommend follow up with Barbara Bryant NP or Gina Wynne for annual Pap.Recommendations:Continue Wahls Protocol - increasing protein, increase healthy fats - focus on 8-10 servings vegetables/day. Smoothies with vegetables/greens and clean protein powder (hemp protein) Recommend LDN (low dose naltrexone) - do research this could be very helpful Recommend Biocidin protocol - I will send this through [employer] Recommend: B complex ( methylated forms) Fish oil or Krill oil - EPA/DHAG89.4 Chronic pain syndromeRecommendations:Recommend using your medical cannabis script - Continue Anti-inflammatory diet Functional Status Description No Information Available Mental Status Description No Information Available Referrals Refer to Reason for Referral Status Appt Date Kit Blevins MD positive Bartonella Scheduled 06/17/[address] [place] [address] [place] [address] [phone] Margarito Nugent MD Sent 04/07/2019 [address], [place] [address] [phone]
--- OUTSIDE RECORDS SUMMARY | 2019-07-24 16:10 | XMS REPORT ---
:1960 Author Organization [facility] Care Team Providers Name Role Phone Nory Sotelo Primary Care Physician Unavailable Allergies, Adverse Reactions, Alerts Allergy Code CodeSystem Reaction Severity Criticality Status Start Substance Date nkda Moderate Active Medications Medication Medication Medication Start Stop Route Dose Status Fill Code CodeSystem Date Date Instructions lorazepam RxNorm 2019- oral 1 mg active for 30 04-08 tablet day(s) lorazepam RxNorm 2019- oral 1 mg completed for 3 02-02 tablet day(s) lorazepam RxNorm 2019- oral 1 mg completed for 3 02-02 tablet day(s) lorazepam RxNorm 2019- oral 1 mg completed for 30 03-0412 tablet day(s) Remeron [id number] RxNorm 2019- oral 15 mg 1 completed Take 1 tablet 03-04 tablet at bedtime at for 30 day(s) bedtime mirtazapine 254547 RxNorm 2019- oral 15 mg 1 active Take 1 1/2 04-08 1/2 tablet by tablet mouth at at bedtime for bedtime 30 day(s) mirtazapine 359042 RxNorm 2019- oral 15 mg completed for 30 04-08 tablet day(s) lorazepam RxNorm 2019- oral 1 mg 1 completed Take 1 tablet 04-03 tablet by mouth three three times a times a day as needed day for 5 day(s) lorazepam RxNorm 2019- oral 1 mg completed for 3 02-02 tablet day(s) Problems Problem Name Code CodeSystem Alternate Alternate Start End Status Narrative Code CodeSystem Date Date Post-traumat 93004835 SNOMED-CT Active ic stress 8-05 disorder, unspecified Recurrent [id number] SNOMED-CT 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, current episode moderate Relevant diagnostic tests/laboratory data Narrative No Information Procedures Procedure Code CodeSystem Target Date of Status Service Device Device Device Name Site Procedure Delivery Code Name UID Location Psychotherap [id number] SNOMED-CT () 2019-06-24 complete Mental y, 45 04 d Health- minutes with [place] patient [address], [id number] [phone] Psychotherap [id number] SNOMED-CT () 2019-05-13 complete Mental y, 45 04 d Health- minutes with [place] patient [address], [id number] [phone] Psychotherap [id number] SNOMED-CT () 2019-06-12 complete Mental y, 45 04 d Health- minutes with [place] patient [address], [id number] [phone] Psychotherap [id number] SNOMED-CT () 2019-04-18 complete Mental y, 45 04 d Health- minutes with [place] patient [address], [id number] [phone] Psychotherap [id number] SNOMED-CT () 2019-03-04 complete Mental y, 45 04 d Health- minutes with [place] patient [address], [id number] [phone] Psychotherap [id number] SNOMED-CT () 2019-03-27 complete Mental y, 45 04 d Health- minutes with [place] patient [address], [id number] [phone] Psychiatric [id number] SNOMED-CT () 2019-03-04 complete Mental diagnostic 85 d Health- evaluation Bry with [address], [id number] [phone] Office or [id number] SNOMED-CT () 2019-04-08 complete Mental other 7 d Health- outpatient Bry visit for [address], of an [facility] established [id number] patient, [phone] which requires at least 2 of these 3 gaffney components: An expanded problem focused history; An expanded problem focused examination; Medical decision making of [facility] Office or [id number] SNOMED-CT () 2019-05-06 complete Mental other 6 d Health- outpatient Bry visit for [address], established [id number] patient, [id number] which requires at least 2 of these 3 gaffney components: A problem focused history; A problem focused examination; [place] medical decision making. Counsel[place] Office or [id number] SNOMED-CT () 2019-06-05 complete Mental other 6 d Health- outpatient Bry visit for [address], established [id number] patient, [phone] which requires at least 2 of these 3 gaffney components: A problem focused history; A problem focused examination; [place] medical decision making. Counselin Office or [id number] SNOMED-CT () 2019-07-01 complete Mental other 6 d Health- outpatient Bry visit for [address], established [id number] patient, [phone] which requires at least 2 of these 3 gaffney components: A problem focused history; A problem focused examination; [place] medical decision making. Counselin SNOMED-CT () 2019-04-08 complete Mental d [address], [id number] [phone] SNOMED-CT () 2019-05-02 complete Mental d Health[address], [id number] [id number] SNOMED-CT () 2019-06-16 complete Mental d Health[address], [id number] [phone] SNOMED-CT () 2019-02-10 complete Mental d [address], [id number] [phone] Encounters/Encounter Diagnoses Encounter Encounter Diagnosis Diagnosis Name Diagnosis Date of Service Name Code Code CodeSystem Diagnosis Delivery Location Non-Billable [id number] Post-traumatic SNOMED-CT 2019-07-03 Behavioral stress Health disorder, Clinic , , unspecified , Vital Signs No Information Social History Element Description Description Start End Code CodeSystem AdditionalInfo Date Date SexAssignedAtBirth Female 1960- F AdministrativeGender 4-13 Hospital Discharge Instructions Reason For Referral Medical Equipment FDA Assessments
--- OUTSIDE RECORDS SUMMARY | 2019-07-24 16:10 | XMS REPORT ---
:1960 Author Organization [facility] Care Team Providers Name Role Phone Nory Sotelo Primary Care Physician Unavailable Allergies, Adverse Reactions, Alerts Allergy Code CodeSystem Reaction Severity Criticality Status Start Substance Date nkda Moderate Active Medications Medication Medication Medication Start Stop Route Dose Status Fill Code CodeSystem Date Date Instructions lorazepam RxNorm 2019- oral 1 mg completed for 3 02-02 tablet day(s) lorazepam RxNorm 2019- oral 1 mg active for 30 04-0814 tablet day(s) lorazepam RxNorm 2019- oral 1 mg completed for 3 02-02 tablet day(s) mirtazapine 546295 RxNorm 2019- oral 15 mg completed for 30 04-08 tablet day(s) lorazepam RxNorm 2019- oral 1 mg completed for 30 03-04 tablet day(s) lorazepam RxNorm 2019- oral 1 mg 1 completed Take 1 tablet 04-03 tablet by mouth three three times a times a day as needed day for 5 day(s) mirtazapine 739645 RxNorm 2019- oral 15 mg 1 active Take 1 1/2 04-08 1/2 tablet by tablet mouth at at bedtime for bedtime 30 day(s) Remeron 074981 RxNorm 2019- oral 15 mg 1 completed Take 1 tablet 03-04 tablet at bedtime at for 30 day(s) bedtime lorazepam RxNorm 2019- oral 1 mg completed for 3 02-02 tablet day(s) Problems Problem Name Code CodeSystem Alternate Alternate Start End Status Narrative Code CodeSystem Date Date 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, unspecified Recurrent [id number] SNOMED-CT 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, current episode moderate Relevant diagnostic tests/laboratory data Narrative No Information Procedures Procedure Code CodeSystem Target Date of Status Service Device Device Device Name Site Procedure Delivery Code Name UID Location Psychotherap [id number] SNOMED-CT () 2019-04-18 complete Mental y, 45 04 d Health- minutes with [facility] patient [address], [id number] [phone] Psychotherap [id number] SNOMED-CT () 2019-03-04 complete Mental y, 45 04 d Health- minutes with [facility] patient [address], [id number] [phone] Psychotherap [id number] SNOMED-CT () 2019-03-27 complete Mental y, 45 04 d Health- minutes with [place] patient [address], [phone] [phone] Psychotherap [id number] SNOMED-CT () 2019-05-13 complete Mental y, 45 04 d Health- minutes with [place] patient [address], [id number] [phone] Psychotherap [id number] SNOMED-CT () 2019-06-12 complete Mental y, 45 04 d Health- minutes with [place] patient [address], [id number] [phone] Psychiatric [id number] SNOMED-CT () 2019-03-04 complete Mental diagnostic 85 d Health- evaluation Bry with [address], [phone] Office or [id number] SNOMED-CT () 2019-04-08 complete Mental other 7 d Health- outpatient [facility] visit for [address], established [id number] patient, [phone] which requires at least 2 of these 3 gaffney components: An expanded problem focused history; An expanded problem focused examination; Medical decision making of [facility] Office or [id number] SNOMED-CT () 2019-05-06 complete Mental other 6 d Health- outpatient [facility] visit for [address], established [id number] patient, [phone] which requires at least 2 of these 3 gaffney components: A problem focused history; A problem focused examination; [place] medical decision making. [place] Office or [id number] SNOMED-CT () 2019-06-05 complete Mental other 6 d Health- outpatient [facility] visit for [address], [facility], of an [facility] established [phone] patient, [phone] which requires at least 2 of these 3 gaffney components: A problem focused history; A problem focused examination; Straight[place] medical decision making. Evi SNOMED-CT () 2019-04-08 complete Mental d Health- [address], [id number] [phone] SNOMED-CT () 2019-05-02 complete Mental d [address], [id number] [phone] SNOMED-CT () 2019-02-10 complete Mental d [address], [id number] [phone] Encounters/Encounter Diagnoses Encounter Name Encounter Diagnosis Diagnosis Diagnosis Date of Service Code Code Name CodeSystem Diagnosis Delivery Location Psychotherapy - 12529 [id number] Post-traumati SNOMED-CT 2019-06-16 Behavioral Individual 30 c stress Health min disorder, Clinic , , unspecified , Vital Signs No Information Social History Element Description Description Start End Code CodeSystem AdditionalInfo Date Date SexAssignedAtBirth Female 1960-0 F AdministrativeGender 4-13 Hospital Discharge Instructions Reason For Referral Medical Equipment FDA Assessments
[2019-07-24] MEDS ORDERED: DOXYcycline CAP(*) 100 MG PO ONE (19:56)
[2019-07-24] MEDS ORDERED: traMADol TAB* 50 MG PO ONE (19:56)
--- NOTE | 2019-07-24 19:59 | ED ---
Influenza-Like Illness - HPI Summary HPI Summary: This pt is a 58 Y/O F presenting to [facility] with a CC of influenza like symptoms. She states that she was recently diagnosed with bartonella and was given ABx but states that her symptoms have not improved. She states that she currently has similar symptoms from her Dx including headaches, chills, leg cramps in her calves, dehydrated and states that she has a rash on her back. She states that her headache is rated as a migraine and is located on the frontal R side of her brain. She denies any visual issues. She has no aggravating or alleviating factors. She states that she had a recent Dx of bartonella. - History of Current Complaint Chief Complaint: EDHeadache Time Seen by Provider: 07/24/19 19:40 Hx Obtained From: Patient Onset/Duration: Sudden Onset, Still Present Severity: Moderate Associated Signs & Symptoms: Myalgia, Headache - Allergy/Home Medications Allergies/Adverse Reactions: Allergies Allergy/AdvReac Type Severity Reaction Status Date / Time No Known Allergies Allergy Verified 07/24/19 16:02 PMH/Surg Hx/FS Hx/Imm Hx Previously Healthy: Yes Neurological History: Reports: Hx Migraine Psychiatric History: Reports: Hx Anxiety, Other Psychiatric Issues/Disorders - insomnia, h/o trauma per pt - Cancer History Hx Chemotherapy: No Hx Radiation Therapy: No - Surgical History Surgical History: None - Immunization History Immunizations Up to Date: Yes Infectious Disease History: No Infectious Disease History: Denies: Traveled Outside the [place] in Last 30 Days - Family History Known Family History: Positive: Unknown - Social History Occupation: Employed Full-time Lives: Alone Alcohol Use: Occasionally Hx Substance Use: No - per pt, takes daily rx'd ativan Substance Use Type: Reports: None Hx Tobacco Use: No Smoking Status (MU): Never Smoked Tobacco Review of Systems Positive: Chills, Other - dehydration Eyes: Negative Negative: Photophobia Positive: Other - Calf cramps Positive: Rash - on her back Positive: Headache - migraine All Other Systems Reviewed And Are Negative: Yes Physical Exam - Summary Physical Exam Summary: Appearance: The patient is well-nourished in no acute distress and in no acute pain. Skin: The skin is warm and dry and skin color reflects adequate perfusion. HEENT: The head is normocephalic and atraumatic. The pupils are equal and reactive. The conjunctivae are clear and without drainage. Nares are patent and without drainage. Mouth reveals moist mucous membranes and the throat is without erythema and exudate. The external ears are intact. The ear canals are patent and without drainage. The tympanic membranes are intact. Neck: The neck is supple with full range of motion and non-tender. There are no carotid bruits. There is no neck vein distension. Respiratory: Chest is non-tender. Lungs are clear to auscultation and breath sounds are symmetrical and equal. Cardiovascular: Heart is regular rate and rhythm. There is no murmur or rub auscultated. There is no peripheral edema and pulses are symmetrical and equal. Abdomen: The abdomen is soft and non-tender. There are normal bowel sounds heard in all four quadrants and there is no organomegaly palpated. Musculoskeletal: There is no back tenderness noted. Extremities are non-tender with full range of motion. There is good capillary refill. There is no peripheral edema or calf tenderness elicited. Neurological: Patient is alert and oriented to person, place and time. The patient has symmetrical motor strength in all four extremities. Cranial nerves are grossly intact. Deep tendon reflexes are symmetrical and equal in all four extremities. Psychiatric: The patient has an appropriate affect and does not exhibit any anxiety or depression. Triage Information Reviewed: Yes Vital Signs On Initial Exam: Initial Vitals Temp Pulse Resp BP Pulse Ox 98.1 F 88 16 101/76 96 07/24/19 15:58 07/24/19 15:58 07/24/19 15:58 07/24/19 15:58 07/24/19 15:58 Vital Signs Reviewed: Yes Procedures - Sedation Patient Received Moderate/Deep Sedation with Procedure: No Diagnostics - Vital Signs Vital Signs Temp Pulse Resp BP Pulse Ox 07/24/19 18:00 98.8 F 74 18 114/74 98 07/24/19 15:58 98.1 F 88 16 101/76 96 - Laboratory Lab Statement: Any lab studies that have been ordered have been reviewed, and results considered in the medical decision making process. Discharge ED - Discharge Plan Referrals: Garrett Anderson MD [Primary Care Provider] - - Attestation Statements Document Initiated by Scribe: Yes Documenting Scribe: Ac Harrington Provider For Whom Scribe is Documenting (Include Credential): Ji Garcia MD Scribe Attestation: I, Ac Harrington, scribed for Ji Garcia MD on 07/24/19 at 1959.
--- NOTE | 2019-07-24 20:04 | ED ---
Headache - HPI Summary HPI Summary: This pt is a 58 Y/O F presenting to [facility] with a CC of a migraine and is located on the frontal R side of her brain since she woke up this morning. She denies any visual issues. She rates the pain a 7/10 in severity. She states that she was recently diagnosed with bartonella and was given ABx but states that her symptoms have not improved. She states that she currently has similar symptoms from her Dx including chills, leg cramps in her calves, dehydrated and states that she has a rash on her back. She has no aggravating or alleviating factors. She states that she had a recent Dx of bartonella and states that she has a Hx of headaches and migraines. - History Of Current Complaint Chief Complaint: EDHeadache Stated Complaint: HEADACHE AND LYME DISEASE PER PT Time Seen by Provider: 07/24/19 19:40 Hx Obtained From: Patient Last Known Well Date: 07/23/2019 before bed Onset/Duration: Sudden Onset Initially Headache Was: Initial Pain Scale(0-10)= - 7/10 Currently Pain Is: Current Pain Scale(0-10)= - 7/10 Timing: Constant Character: Migraine Location of Headache: Frontal - R side Aggravating Factor: Nothing Allevating Factors: Nothing Associated Signs And Symptoms: Negative - visual changes, Other (Noted In Comments) - chills, leg cramps in her calves, dehydrated and states that she has a rash on her back. - Allergies/Home Medications Allergies/Adverse Reactions: Allergies Allergy/AdvReac Type Severity Reaction Status Date / Time No Known Allergies Allergy Verified 07/24/19 16:02 Home Medications: Home Medications LORazepam TAB(*) [Ativan 1 MG TAB (*)] 1 mg PO TID PRN MDD 3 mg 07/24/19 [ History Confirmed 07/24/19] Mirtazapine TAB* [Remeron TAB*] 22.5 mg PO BEDTIME 07/24/19 [History Confirmed 07/24/19] Nystatin CREAM* [Nystatin Cream*] 1 applic TOPICAL BID 07/24/19 [History Confirmed 07/24/19] PMH/Surg Hx/FS Hx/Imm Hx Previously Healthy: Yes Neurological History: Reports: Hx Headaches, Hx Migraine Psychiatric History: Reports: Hx Anxiety, Other Psychiatric Issues/Disorders - insomnia, h/o trauma per pt - Cancer History Hx Chemotherapy: No Hx Radiation Therapy: No - Immunization History Immunizations Up to Date: Yes Infectious Disease History: No Infectious Disease History: Denies: Traveled Outside the [place] in Last 30 Days - Family History Known Family History: Positive: Unknown - Social History Occupation: Employed Full-time Lives: Alone Alcohol Use: Occasionally Hx Substance Use: No - per pt, takes daily rx'd ativan Substance Use Type: Reports: None Hx Tobacco Use: No Smoking Status (MU): Never Smoked Tobacco Review of Systems Positive: Chills Eyes: Negative Positive: Other - calf cramp Positive: Rash - states rash to her back Positive: Headache - migraine All Other Systems Reviewed And Are Negative: Yes Physical Exam - Summary Physical Exam Summary: Appearance: The patient is well-nourished in no acute distress and in no acute pain. Skin: The skin is warm and dry and skin color reflects adequate perfusion. HEENT: The head is normocephalic and atraumatic. The pupils are equal and reactive. The conjunctivae are clear and without drainage. Nares are patent and without drainage. Mouth reveals moist mucous membranes and the throat is without erythema and exudate. The external ears are intact. The ear canals are patent and without drainage. The tympanic membranes are intact. Neck: The neck is supple with full range of motion and non-tender. There are no carotid bruits. There is no neck vein distension. Respiratory: Chest is non-tender. Lungs are clear to auscultation and breath sounds are symmetrical and equal. Cardiovascular: Heart is regular rate and rhythm. There is no murmur or rub auscultated. There is no peripheral edema and pulses are symmetrical and equal. Abdomen: The abdomen is soft and non-tender. There are normal bowel sounds heard in all four quadrants and there is no organomegaly palpated. Musculoskeletal: There is no back tenderness noted. Extremities are non-tender with full range of motion. There is good capillary refill. There is no peripheral edema or calf tenderness elicited. Neurological: Patient is alert and oriented to person, place and time. The patient has symmetrical motor strength in all four extremities. Cranial nerves are grossly intact. Deep tendon reflexes are symmetrical and equal in all four extremities. Psychiatric: The patient has an appropriate affect and does not exhibit any anxiety or depression. Triage Information Reviewed: Yes Vital Signs On Initial Exam: Initial Vitals Temp Pulse Resp BP Pulse Ox 98.1 F 88 16 101/76 96 07/24/19 15:58 07/24/19 15:58 07/24/19 15:58 07/24/19 15:58 07/24/19 15:58 Vital Signs Reviewed: Yes Procedures - Sedation Patient Received Moderate/Deep Sedation with Procedure: No Diagnostics - Vital Signs Vital Signs Temp Pulse Resp BP Pulse Ox 07/24/19 18:00 98.8 F 74 18 114/74 98 07/24/19 15:58 98.1 F 88 16 101/76 96 - Laboratory Lab Statement: Any lab studies that have been ordered have been reviewed, and results considered in the medical decision making process. Headache Course/Dx - Course Course Of Treatment: It's not clear to me that Ms. Scott needs additional doxycycline however I will comply with her request and she has promised to follow-up with Dr. Anderson and Dr. Blevins. - Diagnoses Provider Diagnoses: Migraine Discharge ED - Sign-Out/Discharge Documenting (check all that apply): Patient Departure - discharge - Discharge Plan Condition: Stable Disposition: HOME Prescriptions: DOXYcycline CAP(*) [DOXYcycline 100MG CAP(*)] 100 mg PO BID #28 cap Patient Education Materials: Migraine Headache (ED) Referrals: Garrett Anderson MD [Primary Care Provider] - 2 Days Additional Instructions: PLEASE FOLLOW UP WITH DR. ANDERSON'S OFFICE IN 2 DAYS OR WHEN HE RETURNS. RETURN TO THE EMERGENCY DEPARTMENT FOR ANY NEW OR WORSENING SYMPTOMS. Please take all medications as prescribed. - Billing Disposition and Condition Condition: STABLE Disposition: Home - Attestation Statements Document Initiated by Halima: Yes Documenting Scribe: Ac Bullard Provider For Whom Halima is Documenting (Include Credential): Ji aGrcia MD Scribe Attestation: IAc, scribed for Ji Garcia MD on 07/24/19 at 2136. Scribe Documentation Reviewed: Yes Provider Attestation: The documentation as recorded by the Ac langley accurately reflects the service I personally performed and the decisions made by me, Ji Garcia MD Status of Scribe Document: Viewed
[2019-07-24 20:28] VITALS: BP 129/76
== END 2019-07-24 20:22 | disposition home or self-care (01) ==
LOC: ED 15:49
DX: G43.909 Migraine, unspecified, not intractable, without status migrainosus (principal); R68.83 Chills (without fever); R25.2 Cramp and spasm; E86.0 Dehydration; R21 Rash and other nonspecific skin eruption
CPT/HCPCS: 99282; A9270-GY

== ENCOUNTER 2019-08-16 12:14 | Emergency (ER) | payer MEDICARE, MEDICAID ==
[2019-08-16] MEDS ORDERED: NS 0.9% 1000 ML** 1,000 ML IV ONE (12:42)
--- NOTE | 2019-08-16 12:49 | ED ---
Complex/Multi-Sys Presentation - HPI Summary HPI Summary: This patient is a 58 year old F presenting to [facility] with a chief complaint of body aches and muscular leg pain concentrated in thighs (described as beyond sore) since about 2 months ago. Reports MONTERROSO (left forehead concentrated), pain in chest (3 days ago), sore throat. Symptoms aggravated by nothing. Symptoms alleviated slightly by abx. Patient reports dx bartonella [address] Aguirre (at office on [facility]) for which she saw Dr. Tracy who gave her abx which did not alleviate symptoms completely. She reports she came to the ED 2 weeks ago for abx refill and was referred to Dr. Anderson, hospitalist, as her PCP but because she cannot get an appointment because he is so busy she came to ED today for another abx refill. Pt reports using alternative methods and has not been able to sleep for the past 3 days. Pt reports she took a little bit of abx doxycycline which took edge off of off symptoms. Last bowel movement was 3 days ago. Denies vomiting, diarrhea, dysuria, trouble breathing, back pain, abdominal pain, hx endocarditis. Hx Hyperthyroidism. - History Of Current Complaint Chief Complaint: EDGeneral Time Seen by Provider: 08/16/19 12:24 Hx Obtained From: Patient Onset/Duration: Lasting Weeks, Still Present Timing: Constant Aggravating Factor(s): nothing Alleviating Factor(s): nothing Associated Signs And Symptoms: Positive: Headache, Chest Pain, Other - sore throat, denies difficulty breathing,. Negative: Vomiting, Diarrhea, Abdominal Pain, Back Pain, Dysuria - Allergies/Home Medications Allergies/Adverse Reactions: Allergies Allergy/AdvReac Type Severity Reaction Status Date / Time No Known Allergies Allergy Verified 08/16/19 12:21 Home Medications: Home Medications Aspirin TAB* [Aspirin 325 MG TAB*] 325 mg PO DAILY 08/16/19 [History Confirmed 08/16/19] PMH/Surg Hx/FS Hx/Imm Hx Neurological History: Reports: Hx Headaches, Hx Migraine Psychiatric History: Reports: Hx Anxiety, Other Psychiatric Issues/Disorders - insomnia, h/o trauma per pt - Cancer History Hx Chemotherapy: No Hx Radiation Therapy: No - Surgical History Surgery Procedure, Year, and Place: none Infectious Disease History: No Infectious Disease History: Denies: Traveled Outside the [place] in Last 30 Days - Family History Known Family History: Positive: Other - CA, heart disease - Social History Alcohol Use: Occasionally Hx Substance Use: No - per pt, takes daily rx'd ativan Substance Use Type: Reports: None Hx Tobacco Use: No Smoking Status (MU): Never Smoked Tobacco Review of Systems Positive: Other - body aches Positive: Sore Throat Positive: Chest Pain Positive: Other - denies trouble breathing Negative: Abdominal Pain, Vomiting, Diarrhea Negative: dysuria Positive: Other - muscular leg pain, denies back pain Positive: Headache All Other Systems Reviewed And Are Negative: Yes Physical Exam - Summary Physical Exam Summary: Constitutional: Well-developed, Well-nourished, Alert. (-) Distressed Skin: Warm, Dry HENT: Normocephalic; Atraumatic Eyes: Conjunctiva normal Neck: Musculoskeletal ROM normal neck. (-) JVD, (-) Stridor, (-) Tracheal deviation Cardio: Rhythm regular, rate normal, Heart sounds normal; Intact distal pulses; The pedal pulses are 2+ and symmetric. Radial pulses are 2+ and symmetric. (-) Murmur Pulmonary/Chest wall: Effort normal. (-) Respiratory distress, (-) Wheezes, (-) Rales Abd: Soft, (-) tenderness, (-) Distension, (-) Guarding, (-) Rebound Musculoskeletal: mild tenderness to bilateral thighs Lymph: (-) Cervical adenopathy Neuro: Alert, Oriented x3 Psych: Mood and affect Normal Triage Information Reviewed: Yes Vital Signs On Initial Exam: Initial Vitals Temp Pulse Resp BP Pulse Ox 98.9 F 94 14 128/76 98 08/16/19 12:18 08/16/19 12:18 08/16/19 12:18 08/16/19 12:18 08/16/19 12:18 Vital Signs Reviewed: Yes Procedures - Sedation Patient Received Moderate/Deep Sedation with Procedure: No Diagnostics - Vital Signs Vital Signs Temp Pulse Resp BP Pulse Ox 08/16/19 12:18 98.9 F 94 14 128/76 98 - Laboratory Result Diagrams: 08/16/19 12:53 08/16/19 12:53 Lab Statement: Any lab studies that have been ordered have been reviewed, and results considered in the medical decision making process. Complex Multi-Symp Course/Dx Course Of Treatment: This patient is a 58 year old F presenting to [facility] with a chief complaint of body aches and muscular leg pain concentrated in thighs ( described as beyond sore) since about 2 months ago. Reports MONTERROSO (left forehead concentrated), pain in chest (3 days ago), sore throat. Symptoms alleviated slightly by abx. Patient reports dx bartonella [address] Aguirre (at office on [facility]) for which she saw Dr. Tracy who gave her abx which did not alleviate symptoms completely. Denies vomiting, diarrhea, dysuria, trouble breathing, back pain, abdominal pain, hx endocarditis. Hx Hyperthyroidism. Physical Exam Findings reveal no abnormalities except for mild tenderness to bilateral thighs. In the ED course the patient was given Ketorolac Tromethamine 30 mg, saline. Pt will be discharged with dx myalgia and MONTERROSO and will follow up with Dr. Anderson, PCP, on Sunday08/18/19. The patient is agreeable with this plan. Patient insists that she needs doxycycline for treatment for Bartonella. Patient given prescription for 7 days. Encouraged to follow up with PCP as soon as possible for further evaluation. No acute pathology noted upon ED workup. - Diagnoses Provider Diagnoses: Myalgia, Headache Discharge ED - Sign-Out/Discharge Documenting (check all that apply): Patient Departure - discharge - Discharge Plan Condition: Stable Disposition: HOME Prescriptions: Doxycycline Hyclate 100 mg PO BID 7 Days #14 tablet Patient Education Materials: Musculoskeletal Pain (ED) Referrals: Garrett Anderson MD [Primary Care Provider] - 2 Days (Follow up with Dr. Anderson on 08/18/19. ) Additional Instructions: Follow up with Dr. Anderson on 08/18/19. - Billing Disposition and Condition Condition: STABLE Disposition: Home - Attestation Statements Document Initiated by Bhavikibsharan: Yes Documenting Scribe: Kristin Flynn Provider For Whom Halima is Documenting (Include Credential): Dr. Ronald Power D.O. Scribe Attestation: Kristin Wiley, scribed for Dr. Ronald Power D.O. on 08/17/19 at 1255. Scribe Documentation Reviewed: Yes Provider Attestation: The documentation as recorded by the Kristin langley accurately reflects the service I personally performed and the decisions made by me, Dr. Ronald Power, Sharon.O. Status of Halima Document: Viewed
[2019-08-16 13:02] LABS: ABS Eosinophils 0.2 10^3/ul (0-0.6); ABS Lymphocytes 1.1 10^3/ul (1.0-4.8); ABS Monocytes 0.3 10^3/ul (0-0.8); ABS Neutrophils 3.2 10^3/ul (1.5-7.7); Eosinophil % 4.8 %; Hematocrit 42 % (35-47); Hemoglobin 14.1 g/dL (12.0-16.0); Lymphocyte % 23.2 %; Mean Corpuscular HGB Conc 33 g/dL (31-36); Mean Corpuscular Hemoglobin 29 pg (27-31); Mean Corpuscular Volume 88 fL (80-97); Mean Platelet Volume 9.8 fL (7.4-10.4); Nucleated Red Blood Cells % 0.1; Platelet Count 188 10^3/uL (150-450); Red Cell Distribution Width 14 % (10-15); White Blood Count 4.9 10^3/uL (3.5-10.8)
[2019-08-16 13:23] LABS: ALT 13 U/L (7-52); AST 17 U/L (13-39); Albumin 4.1 g/dL (3.2-5.2); Albumin/Globulin Ratio 1.7 (1-3); Alkaline Phosphatase 58 U/L (34-104); Anion Gap 10 mmol/L (2-11); BUN/Creatinine Ratio 25.5 (8-20); Blood Urea Nitrogen 26 mg/dL (6-24); C Reactive Protein < 1.00 mg/L (<8.01); CO2 Carbon Dioxide 25 mmol/L (22-32); Chloride 103 mmol/L (101-111); EGFR African American 67.3 (>60); EGFR Non-African American 55.7 (>60); Globulin 2.4 g/dL (2-4); Glucose 91 mg/dL (70-100); Potassium 3.9 mmol/L (3.5-5.0); Sodium 138 mmol/L (135-145); Total Protein 6.5 g/dL (6.4-8.9)
[2019-08-16] MEDS ORDERED: Ketorolac INJ* 30 MG/ML 1 ML VIAL IV PUSH ONE (13:39)
[2019-08-16 14:04] LABS: Erythrocyte Sed Rate 1 mm/Hr (0-29); Rheumatoid Factor < 10 IU/mL (<15)
[2019-08-16] MEDS ORDERED: DOXYcycline CAP(*) 100 MG PO ONE (14:17)
[2019-08-16 14:40] VITALS: BP 105/83
== END 2019-08-16 14:38 | disposition home or self-care (01) ==
LOC: ED 12:14
DX: M79.10 Myalgia, unspecified site (principal); R51 Headache; E03.9 Hypothyroidism, unspecified; F41.9 Anxiety disorder, unspecified; Z79.82 Long term (current) use of aspirin
CPT/HCPCS: 36415; 80053; 85025; 85652; 86140; 86431; 96361; 96374; 99283; A9270-GY; J1885

== ENCOUNTER 2019-09-13 10:04 | Emergency (ER) | payer MEDICARE, MEDICAID ==
--- OUTSIDE RECORDS SUMMARY | 2019-09-13 10:32 | XMS REPORT | Continuity of Care Document ---
:1960 External Reference #:[id number] Author Name Lida Salmon MD (transmitted by agent of provider Elsy Kline) Address [address] [place] [address] Care Team Providers Name Role Phone Garrett Anderson MD - Hospitalist Care Team Information Hand Tier [phone] Problems Description No Information Available Social History Type Date Description Comments Sex Unknown Tobacco Use Start: Unknown Never Smoked Cigarettes Smoking Status Reviewed: 09/04/19 Never Smoked Cigarettes ETOH Use Denies alcohol [...] Adult takes 2tabs qid Unknown 325mg Tablets Fish Oil 1 tab by mouth Unknown 1000mg every morning Capsules History Medications Doxycycline Hyclate 1 cap by mouth 30caps R76.8 Kit Kinney 06/17/2019 - twice a day Jose Blevins 08/23/2019 100mg Capsules with food Immunizations Description No Information Available Vital Signs Date Vital Result Comment 09/04/2019 8:06am Height 65 inches 5'5" 08/25/2019 10:19am Height 65 inches 5'5" Weight 123.00 lb Heart Rate 78 /min BP Systolic Sitting 116 mmHg BP Diastolic Sitting 77 mmHg Body Temperature 96.8 F O2 % BldC Oximetry 98 % BMI (Body Mass Index) 20.5 kg/m2 Results Test Acquired Date Facility Test Result H/L Range Note CBC Auto 08/16/2019 [facility] White Blood 4.9 10^3/uL Normal 3.5-10.[address] [place] [address] [phone] Red Blood Count 4.80 10^6/uL Normal 3.70-4.87 Hemoglobin 14.1 g/dL Normal 12.0-16.0 Hematocrit 42 % Normal 35-47 Mean Corpuscular Volume 88 fL Normal 80-97 Mean Corpuscular Hemoglobin 29 pg Normal 27-31 Mean Corpuscular HGB Conc 33 g/dL Normal 31-36 Red Cell Distribution Width 14 % Normal 10-15 Platelet Count 188 10^3/uL Normal 150-450 Mean Platelet Volume 9.8 fL Normal 7.4-10.4 Abs Neutrophils 3.2 10^3/uL Normal 1.5-7.7 Abs Lymphocytes 1.1 10^3/uL Normal 1.0-4.8 Abs Monocytes 0.3 10^3/uL Normal 0-0.8 Abs Eosinophils 0.2 10^3/uL Normal 0-0.6 Abs Basophils 0.0 10^3/uL Normal 0-0.2 Abs Nucleated RBC 0.0 10^3/uL Granulocyte % 66.0 % Lymphocyte % 23.2 % Monocyte % 5.2 % Eosinophil % 4.8 % Basophil % 0.8 % Nucleated Red Blood Cells % 0.1 Laboratory test 08/16/2019 [facility] Erythrocyte Sed 1 mm/Hr Normal 0-[address] [place] [address] [phone] Comp Metabolic 08/16/2019 [facility] Sodium 138 Normal 135- [address] mmol/[place] [address] [phone] Potassium 3.9 mmol/L Normal 3.5-5.0 Chloride 103 mmol/L Normal 101-111 Co2 Carbon Dioxide 25 mmol/L Normal 22-32 Anion Gap 10 mmol/L Normal 2-11 Glucose 91 mg/dL Normal 70-100 Blood Urea Nitrogen 26 mg/dL High 6-24 Creatinine 1.02 mg/dL High 0.51-0.95 BUN/Creatinine Ratio 25.5 High 8-20 Calcium 9.0 mg/dL Normal 8.6-10.3 Total Protein 6.5 g/dL Normal 6.4-8.9 Albumin 4.1 g/dL Normal 3.2-5.2 Globulin 2.4 g/dL Normal 2-4 Albumin/Globulin Ratio 1.7 Normal 1-3 Total Bilirubin 0.40 mg/dL Normal 0.2-1.0 Alkaline Phosphatase 58 U/L Normal 34-104 Alt 13 U/L Normal 7-52 Ast 17 U/L Normal 13-39 Egfr Non- 55.7 >60 Egfr 67.3 >60 1 Laboratory test 08/16/2019 [facility] C Reactive < 1.00 Normal <8.01 finding [address] Protein mg/[place] [address] [phone] Rheumatoid Factor < 10 IU/mL Normal <15 HIV 1&2 p24 06/23/2019 [facility] HIV 4th Nonreactive Nonreactive Screen [address] [place] [address] [phone] Hepatitis C 06/23/2019 [facility] HCV Index 0.01 s/c Antibody [address] [place] [address] [phone] Hepatitis C Antibody Negative Negative Laboratory 06/23/2019 [facility] Hepatitis B Nonreactive Nonreactive test finding [address] [place] [address] [phone] Hepatitis B Piotr AB Titer Not Immune Abnormal Immune Cat Scratch 06/23/2019 [facility] Bartonella <1:128 titer <1: 128 Fever Panel [address] [place] [address] [phone] Bartonella Henselae IgM <1:20 titer <1:20 Bartonella Lewis IgG <1:128 titer <1:128 Bartonella Lewis IgM <1:20 titer <1:20 2 Basic Metabolic 06/23/2019 [facility] Sodium 138 mmol/L Normal 135-145 Panel [address] [place] [address] [phone] Potassium 4.1 mmol/L Normal 3.5-5.0 Chloride 101 mmol/L Normal 101-111 Co2 Carbon Dioxide 31 mmol/L Normal 22-32 Anion Gap 6 mmol/L Normal 2-11 Glucose 100 mg/dL Normal 70-100 Blood Urea Nitrogen 27 mg/dL High 6-24 Creatinine 1.15 mg/dL High 0.51-0.95 BUN/Creatinine Ratio 23.5 High 8-20 Calcium 9.2 mg/dL Normal 8.6-10.3 Egfr Non- 48.5 >60 Egfr 58.6 >60 3 Laboratory test 04/12/2019 [facility] Vitamin E 11.9 mg/L 5.5 - 17.0 [address] [place] [address] [phone] Complement C4a Main Lab Only 1563 ng/mL 0-2830 5 Celiac Hla 04/12/2019 [facility] Hla-Dqa1 SEE BELOW [address] [place] [address] [phone] Hla-DQB1 SEE BELOW 7 Celiac Gene Pairs Present? Equivocal Celiac Gene Interpretation See Comment 8 Laboratory test 04/12/2019 [facility] Vitamin A 74.4 g/dL 32.5-78.0 [address] (Retinol) [place] [address] [phone] T3 Reverse 13 ng/dL 10-24 10 Anti Gliadin Igg And Iga 04/12/2019 [facility] Gliadin IgG < 10.0 U [address] [place] [address] [phone] Gliadin IgA <10.0 U 12 Transglutaminase Igg 04/12/2019 [facility] Tissue <1.2 13 & Iga [address] Transglutaminase IgA U/[place] [address] Ab [phone] Tissue Transglutaminase IgG Ab 1.4 U/mL 14 Heavy Metal Blool 04/12/2019 [facility] Arsenic <1 ng/mL 0- [address] [place] [address] [phone] Lead 1.3 g/dL 0.0-4.9 16 Mercury <1 ng/mL 0-9 17 Cadmium 0.3 ng/mL 0.0-4.[address] [place] [address] [place] [address] Guardian First Name MARISSA Guardian Last Name NICOLA Venous/Capillary Heavy Metals Venous Patient Race WHITE Submitting Laboratory 19 Cat Scratch 04/12/2019 [facility] Bartonella <1:128 titer <1: 128 Fever Panel [address] [place] [address] [phone] Bartonella Henselae IgM <1:20 titer <1:20 Bartonella Lewis IgG 1:256 titer Abnormal <1:128 20 Bartonella Lewis IgM <1:20 titer <1:20 21 Laboratory test 04/12/2019 [facility] Homocysteine 10 mcmol/L [address] [place] [address] [phone] Arthritis Panel 04/12/2019 [facility] Uric Acid 3.2 mg/dL Normal 2.3-[address] [place] [address] [phone] Rheumatoid Factor < 10 IU/mL Normal <15 Erythrocyte Sed Rate 4 mm/Hr Normal 0-29 Anti-Nuclear Antibody 0.1 U 23 Cyclic Citrullinated Peptide <15.6 U 24 Interpretation See Comment 25 Laboratory test 04/12/2019 [facility] Magnesium 2.1 mg/dL Normal 1.9-2.[address] [place] [address] [phone] CRP High Sensitivity 0.28 mg/L <2.00 T3 Free 3.40 pg/mL Normal 2.5-3.9 T3 Total 107 ng/dL Normal 87-178 Thyroperoxidase AB 79.15 IU/mL High <9 CBC Auto 04/12/2019 [facility] White Blood 9.6 10^3/uL Normal 3.5-10.[address] [place] [address] [phone] Red Blood Count 4.59 10^6/uL Normal 3.70-4.87 [...] Red Blood Cells % 0.1 Laboratory test 04/07/2019 [facility] Miscellaneous Test < pending> finding [address] [place] [address] [phone] Laboratory test 04/07/2019 [facility] Vitamin D Total <pending> finding [address](Oh) [place] [address] [phone] Thyroperoxidase AB <pending> T3 Free <pending> T3 Reverse <pending> T3 Total <pending> Homocysteine <pending> Complement C4a Main Lab Only <pending> Vitamin E Level <pending> Vitamin A (Retinol) <pending> Laboratory test finding 04/07/2019 [facility] Zinc Serum < pending> [address] [place] [address] [phone] Copper, Serum <pending> Laboratory test 04/07/2019 [facility] CRP High <pending> finding [address] [place] [address] [phone] CBC Auto Diff 03/21/2019 [facility] White Blood 4.6 10^3/uL Normal 3.5- [address] Count 10.8 [place] [address] [phone] Red Blood Count 4.95 10^6/uL High 3.70-4.87 [...] % Nucleated Red Blood Cells % 0.1 1 Because ethnic data is not always readily [...] 15-29 5 Kidney failure <15 (or dialysis) 2 ADDITIONAL INFORMATION This test was developed and its performance characteristics determined by [facility] in a manner consistent with CLIA requirements. This test has not been cleared or approved by the U.S. Food and Drug Administration. Test Performed by: [facility] - [place] [place] [address] Resistance Machine Welder Setter: Thong Manzo M.D. Ph.D.; CLIA# [id number] 3 Because ethnic data is not always readily [...] 15-29 5 Kidney failure <15 (or dialysis) 4 ADDITIONAL INFORMATION This test was developed and its performance characteristics determined by [facility] in a manner consistent with CLIA requirements. This test has not been cleared or approved by the U.S. Food and Drug Administration. Test Performed by: [facility] [place] [address] Resistance Machine Welder Setter: Thong Manzo M.D. Ph.D.; CLIA# [id number] 5 ADDITIONAL INFORMATION This test uses a kit/reagent designated by the air conditioning coil assembler as for research use, not for clinical use. The performance characteristics of this test have been validated by [facility]. It has not been cleared or approved by the U.S. Food and Drug Administration. The results are not intended to be used as the sole means for clinical diagnosis or patient management decisions. This laboratory is certified under the Clinical Laboratory Improvement Amendments of 1988 (CLIA-88) as qualified to perform high complexity clinical laboratory testing. Test Performed by: [facility] [address] [place] [id number] 6 RESULT: ,02:01 REFERENCE VALUE Not Applicable 7 RESULT: 02:02,05:01 DQ Serologic Equivalent: 2,5 REFERENCE VALUE Not Applicable 8 While the patient lacks the gene pairs [...] medium resolution molecular values. Test Performed by: [facility] [place] [address] Resistance Machine Welder Setter: Thong Manzo M.D. Ph.D.; CLIA# [id number] 9 ADDITIONAL INFORMATION This test was developed and its performance characteristics determined by [facility] in a manner consistent with CLIA requirements. This test has not been cleared or approved by the U.S. Food and Drug Administration. Test Performed by: [facility] [place] [address] Resistance Machine Welder Setter: Thong Manzo M.D. Ph.D.; CLIA# [id number] 10 ADDITIONAL INFORMATION This test was developed and its performance characteristics determined by [facility] in a manner consistent with CLIA requirements. This test has not been cleared or approved by the U.S. Food and Drug Administration. Test Performed by: [facility] [place] [address] Resistance Machine Welder Setter: Thong Manzo M.D. Ph.D.; CLIA# [id number] 11 REFERENCE VALUE <20.0 (Negative) Test Performed by: [facility] [place] [address] Resistance Machine Welder Setter: Thong Manzo M.D. Ph.D.; CLIA# [id number] 12 REFERENCE VALUE <20.0 (Negative) 13 REFERENCE VALUE <4.0 (Negative) 14 REFERENCE VALUE <6.0 (Negative) Test Performed by: [facility] [place] [address] Resistance Machine Welder Setter: Thong Manzo M.D. Ph.D.; CLIA# [id number] 15 ADDITIONAL INFORMATION This test was developed and its performance characteristics determined by [facility] in a manner consistent with CLIA requirements. This test has not been cleared or approved by the U.S. Food and Drug Administration. 16 ADDITIONAL INFORMATION Testing performed by Inductively Coupled Plasma-Mass Spectrometry (ICP-MS). This test was developed and its performance characteristics determined by [facility] in a manner consistent with CLIA requirements. This test has not been cleared or approved by the U.S. Food and Drug Administration. 17 ADDITIONAL INFORMATION This test was developed and its performance characteristics determined by [facility] in a manner consistent with CLIA requirements. This test has not been cleared or approved by the U.S. Food and Drug Administration. 18 ADDITIONAL INFORMATION This test was developed and its performance characteristics determined by [facility] in a manner consistent with CLIA requirements. This test has not been cleared or approved by the U.S. Food and Drug Administration. 19 Test Performed by: [facility] [place] [address] Resistance Machine Welder Setter: Thong Manzo M.D. Ph.D.; CLIA# [id number] 20 Results suggest recent infection. 21 ADDITIONAL INFORMATION This test was developed and its performance characteristics determined by [facility] in a manner consistent with CLIA requirements. This test has not been cleared or approved by the U.S. Food and Drug Administration. Test Performed by: [facility] [place] [address] Resistance Machine Welder Setter: Thong Manzo M.D. Ph.D.; CLIA# [id number] 22 REFERENCE VALUE <=13 (Fasting) ADDITIONAL INFORMATION This test was developed and its performance characteristics determined by [facility] in a manner consistent with CLIA requirements. This test has not been cleared or approved by the U.S. Food and Drug Administration. Test Performed by: [facility] - [address] [address] Resistance Machine Welder Setter: Thong Manzo M.D. Ph.D.; CLIA# [id number] 23 REFERENCE VALUE <=1.0 (Negative) 24 REFERENCE VALUE <20.0 (Negative) 25 Tests for antibodies to dsDNA and SAMIR antigens are not performed automatically unless the CHIRAG result is > or = 3.0 U. Studies performed at [facility] indicate that positive CHIRAG results <3.0 U are rarely accompanied by positive second order tests. Test Performed by: [facility] [address] [place] [address] Resistance Machine Welder Setter: Thong Manzo M.D. Ph.D.; CLIA# [id number] Procedures Description No Information Available Medical Devices Description No Information Available Encounters Type Date Location Provider Dx Diagnosis Office Visit 06/17/2019 [facility] Kit Kinney R76.8 Other specified 9:10a Infectious Jose Blevins abnormal Diseases immunological findings in serum Office Visit 06/03/2019 [facility], R53.82 Chronic fatigue, 11:00a [facility] POOL TECHNICIAN unspecified G89.4 Chronic pain syndrome Office Visit 04/29/2019 11:40a [facility] Internal Cameron Gay R53.82 Chronic fatigue, Medicine - [facility] POOL TECHNICIAN unspecified G89.4 Chronic pain syndrome [facility], [facility] POOL TECHNICIAN unspecified G89.4 Chronic pain syndrome K58.8 Other irritable bowel syndrome F41.9 Anxiety disorder, unspecified R51 Headache Office Visit 03/25/2019 12:00p [facility] Internal Garrett Anderson MD F41.1 Generalized anxiety Medicine - Suite disorder R R53.83 Other fatigue F43.12 Post-traumatic stress disorder, chronic R63.6 Underweight Z12.11 Encounter for screening for malignant neoplasm of colon Assessments Date Code Description Provider 09/04/2019 R35.0 Frequency of micturition Lida Salmon MD 08/25/2019 R53.82 Chronic fatigue, unspecified Maris Bolanos DO 08/25/2019 Z12.11 Encounter for screening for malignant Maris WiltonvickieDO neoplasm of colon 08/25/2019 N18.1 Chronic kidney disease, stage 1 Maris Bolanos, DO 06/17/2019 R76.8 Other specified abnormal immunological Kit Blevins M.D. findings in serum 06/03/2019 R53.82 Chronic fatigue, unspecified Soraya Mendoza, POOL TECHNICIAN 06/03/2019 G89.4 Chronic pain syndrome Soraya Mendoza, POOL TECHNICIAN 04/29/2019 R53.82 Chronic fatigue, unspecified Cameron Victor Hugo, POOL TECHNICIAN 04/29/2019 G89.4 Chronic pain syndrome Cameron Victor Hugo, POOL TECHNICIAN 04/07/2019 R53.82 Chronic fatigue, unspecified Soraya Mendoza, POOL TECHNICIAN 04/07/2019 G89.4 Chronic pain syndrome Soraya Mendoza, POOL TECHNICIAN 04/07/2019 K58.8 Other irritable bowel syndrome Soraya Mendoza, POOL TECHNICIAN 04/07/2019 F41.9 Anxiety disorder, unspecified Soraya Mendoza, POOL TECHNICIAN 04/07/2019 R51 Headache Soraya Mendoza, POOL TECHNICIAN 03/25/2019 F41.1 Generalized anxiety disorder Garrett Anderson MD 03/25/2019 R53.83 Other fatigue Garrett Anderson MD 03/25/2019 F43.12 Post-traumatic stress disorder, chronic Garrett Anderson MD 03/25/2019 R63.6 Underweight Garrett Anderson MD 03/25/2019 Z12.11 Encounter for screening for malignant Garrett Anderson MD neoplasm of colon Plan of Treatment Future Appointment(s):09/26/2019 12:00 pm - Ion Dumont M.D. at [facility]09/04/2019 - Lida Salmon, MDR35.0 Frequency of micturitionFollow up:prn Functional Status Description No Information Available Mental Status Description No Information Available Referrals Refer to Dr Reason for Referral Status Appt Date Ion Dumont MD Scheduled 09/26/2019 [address] [place] [address] [place] [address] [phone] Lida Salmon MD Sent 09/04/[address] [place] [address] [phone] Kit Blevins MD positive Bartonella Received Complete 06/17/[address] [place] [address] [place] [address] [phone]
--- OUTSIDE RECORDS SUMMARY | 2019-09-13 10:32 | XMS REPORT | Continuity of Care Document ---
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 [phone] Problems Description No Information Available Social History Type Date Description Comments Sex Unknown Tobacco Use Start: Unknown Never Smoked Cigarettes Smoking Status Reviewed: 08/25/19 Never Smoked Cigarettes ETOH Use Denies alcohol [...] by mouth Unknown 1000mg every morning Capsules Immunizations Description No Information Available Vital Signs Date Vital Result Comment 08/25/2019 10:19am Height 65 inches 5'5" Weight 123.00 lb Heart Rate 78 /min BP Systolic Sitting 116 mmHg BP Diastolic Sitting 77 mmHg Body Temperature 96.8 F O2 % BldC Oximetry 98 % BMI (Body Mass Index) 20.5 kg/m2 06/17/2019 9:16am Height 65 inches 5'5" Weight 121.38 lb Heart Rate 80 /min BP Systolic Sitting 114 mmHg BP Diastolic Sitting 80 mmHg Respiratory Rate 14 /min Body Temperature 96.9 F BMI (Body Mass Index) 20.2 kg/m2 Results Test Acquired Date Facility Test Result H/L Range Note CBC Auto 08/16/2019 White Blood 4.9 10^3/uL Normal 3.5-10.[address] [place] [address] [phone] Red Blood Count 4.80 10^6/uL Normal 3.70-4.87 [...] Blood Cells % 0.1 Laboratory test 08/16/2019 Erythrocyte Sed 1 mm/Hr Normal 0-[address] [place] [address] [phone] Comp Metabolic 08/16/2019 Sodium 138 Normal 135- [address] mmol/[place] [address] [phone] Potassium 3.9 mmol/L Normal 3.5-5.0 Chloride 103 [...] Egfr 67.3 >60 1 Laboratory test 08/16/2019 C Reactive < 1.00 Normal <8.01 finding [address] Protein mg/[place] [address] [phone] Rheumatoid Factor < 10 IU/mL Normal <15 HIV 1&2 p24 06/23/2019 HIV 4th Nonreactive Nonreactive Screen [address] [place] [address] [phone] Hepatitis C 06/23/2019 HCV Index 0.01 s/c Antibody [address] [place] [address] [phone] Hepatitis C Antibody Negative Negative Laboratory 06/23/2019 Hepatitis B Nonreactive Nonreactive test finding [address] [place] [address] [phone] Hepatitis B Piotr AB Titer Not Immune Abnormal Immune Cat Scratch 06/23/2019 Bartonella <1:128 titer <1: 128 Fever Panel [address] [place] [address] [phone] Bartonella Henselae IgM <1:20 titer <1:20 Bartonella Lewis IgG <1:128 titer <1:128 Bartonella Lewis IgM <1:20 titer <1:20 2 Basic Metabolic 06/23/2019 Sodium 138 mmol/L Normal 135-145 Panel [address] [place] [address] [phone] Potassium 4.1 mmol/L Normal 3.5-5.0 Chloride 101 mmol/L Normal 101-111 Co2 Carbon Dioxide 31 mmol/L Normal 22-32 Anion Gap 6 mmol/L Normal 2-11 Glucose 100 mg/dL Normal 70-100 Blood Urea Nitrogen 27 mg/dL High 6-24 Creatinine 1.15 mg/dL High 0.51-0.95 BUN/Creatinine Ratio 23.5 High 8-20 Calcium 9.2 mg/dL Normal 8.6-10.3 Egfr Non- 48.5 >60 Egfr 58.6 >60 3 Laboratory test 04/12/2019 Vitamin E 11.9 mg/L 5.5 - 17.0 [address] [place] [address] [phone] Complement C4a Main Lab Only 1563 ng/mL 0-2830 5 Celiac Hla 04/12/2019 Hla-Dqa1 SEE BELOW [address] [place] [address] [phone] Hla-[id number] SEE BELOW 7 Celiac Gene Pairs Present? Equivocal Celiac Gene Interpretation See Comment 8 Laboratory test 04/12/2019 Vitamin A 74.4 g/dL 32.5-78.0 [address] (Retinol) [place] [address] [phone] T3 Reverse 13 ng/dL 10-24 10 Anti Gliadin Igg And Iga 04/12/2019 Gliadin IgG < 10.0 U [address] [place] [address] [phone] Gliadin IgA <10.0 U 12 Transglutaminase Igg 04/12/2019 Tissue <1.2 13 & Iga [address] Transglutaminase IgA U/[place] [address] Ab [phone] Tissue Transglutaminase IgG Ab 1.4 U/mL 14 Heavy Metal Blool 04/12/2019 Arsenic <1 ng/mL 0- [address] [place] [address] [phone] Lead 1.3 g/dL 0.0-4.9 16 Mercury <1 ng/mL 0-9 17 Cadmium 0.3 ng/mL 0.0-4.[address] [place] [address] [place] [address] Guardian First Name MARISSA Guardian Last Name NICOLA Venous/Capillary Heavy Metals Venous Patient Race WHITE Submitting Laboratory 19 Cat Scratch 04/12/2019 Bartonella <1:128 titer <1: 128 Fever Panel [address] [place] [address] [phone] Bartonella Henselae IgM <1:20 titer <1:20 Bartonella Lewis IgG 1:256 titer Abnormal <1:128 20 Bartonella Lewis IgM <1:20 titer <1:20 21 Laboratory test 04/12/2019 Homocysteine 10 mcmol/L [address] [place] [address] [phone] Arthritis Panel 04/12/2019 Uric Acid 3.2 mg/dL Normal 2.3-[address] [place] [address] [phone] Rheumatoid Factor < 10 IU/mL Normal <15 Erythrocyte Sed Rate 4 mm/Hr Normal 0-29 Anti-Nuclear Antibody 0.1 U 23 Cyclic Citrullinated Peptide <15.6 U 24 Interpretation See Comment 25 Laboratory test 04/12/2019 Magnesium 2.1 mg/dL Normal 1.9-2.[address] [place] [address] [phone] CRP High Sensitivity 0.28 mg/L <2.00 T3 Free 3.40 pg/mL Normal 2.5-3.9 T3 Total 107 ng/dL Normal 87-178 Thyroperoxidase AB 79.15 IU/mL High <9 CBC Auto 04/12/2019 White Blood 9.6 10^3/uL Normal 3.5-10.[address] [place] [address] [phone] Red Blood Count 4.59 10^6/uL Normal 3.70-4.87 [...] Blood Cells % 0.1 Laboratory test 04/07/2019 Miscellaneous Test < pending> finding [address] [place] [address] [phone] Laboratory test 04/07/2019 Vitamin D Total <pending> finding [address](Oh) [place] [address] [phone] Thyroperoxidase AB <pending> T3 Free <pending> T3 Reverse <pending> T3 Total <pending> Homocysteine <pending> Complement C4a Main Lab Only <pending> Vitamin E Level <pending> Vitamin A (Retinol) <pending> Laboratory test finding 04/07/2019 Zinc Serum < pending> [address] [place] [address] [phone] Copper, Serum <pending> Laboratory test 04/07/2019 CRP High <pending> finding [address] [place] [address] [phone] CBC Auto Diff 03/21/2019 White Blood 4.6 10^3/uL Normal 3.5- [address] Count 10.8 [place] [address] [phone] Red Blood Count 4.95 10^6/uL High 3.70-4.87 [...] Blood Cells % 0.1 CBC Auto 03/01/2019 White Blood 2.8 10^3/uL Low 3.5 -10.[address] [place] [address] [phone] Red Blood Count 4.43 10^6/uL Normal 3.70-4.87 [...] Blood Cells % 0.1 Comp Metabolic 03/01/2019 Sodium 142 mmol/L Normal 135-[address] [place] [address] [phone] Potassium 4.4 mmol/L Normal 3.5-5.0 Chloride 106 [...] Egfr Non- 63.5 >60 Egfr 76.8 >60 26 Laboratory test 03/01/2019 Lyme Screen Negative Negative [address] W/ [place] [address] WB [phone] Erythrocyte Sed Rate 1 mm/Hr Normal 0-29 TSH (Thyroid Stim Horm) 2.25 mcIU/mL Normal 0.34-5.60 1 Because ethnic data is not always [...] developed and its performance characteristics determined by [facility] in a manner consistent with CLIA requirements. This test has not been cleared or approved by the U.S. Food and Drug Administration. Test Performed by: [facility] [address] [place] [address] Principal Product Manager: Thong Manzo M.D. Ph.D.; CLIA# [id number] 3 Because ethnic data is not always [...] developed and its performance characteristics determined by [facility] in a manner consistent with CLIA requirements. This test has not been cleared or approved by the U.S. Food and Drug Administration. Test Performed by: [facility] [address] [place] [address] Principal Product Manager: Thong Manzo M.D. Ph.D.; CLIA# [id number] 5 ADDITIONAL INFORMATION This test uses a kit/reagent designated by the scallop binder as for research use, not for clinical use. The performance characteristics of this test have been validated by [facility]. It has not been cleared or approved by the U.S. Food and Drug Administration. The results are not intended to be used as the sole means for clinical diagnosis or patient management decisions. This laboratory is certified under the Clinical Laboratory Improvement Amendments of 1988 (CLIA-88) as qualified to perform high complexity clinical laboratory testing. Test Performed by: [facility] [address] [place] [phone] [id number] RESULT: 01,02:01 REFERENCE VALUE Not Applicable 7 RESULT: 02:02,05:01 [...] medium resolution molecular values. Test Performed by: [facility] - [address] [address] Principal Product Manager: Thong Manzo M.D. Ph.D.; CLIA# [id number] 9 ADDITIONAL INFORMATION This test was developed and its performance characteristics determined by [facility] in a manner consistent with CLIA requirements. This test has not been cleared or approved by the U.S. Food and Drug Administration. Test Performed by: [facility] - [facility] [address] [place] [address] Principal Product Manager: Thong Manzo M.D. Ph.D.; CLIA# [id number] 10 ADDITIONAL INFORMATION This test was developed and its performance characteristics determined by [facility] in a manner consistent with CLIA requirements. This test has not been cleared or approved by the U.S. Food and Drug Administration. Test Performed by: [facility] - [facility] [address] [place] [address] Principal Product Manager: Thong Manzo M.D. Ph.D.; CLIA# [id number] 11 REFERENCE VALUE <20.0 (Negative) Test Performed by: [facility] [place] [address] Principal Product Manager: Thong Manzo M.D. Ph.D.; CLIA# [id number] 12 REFERENCE VALUE <20.0 (Negative) 13 REFERENCE VALUE <4.0 (Negative) 14 REFERENCE VALUE <6.0 (Negative) Test Performed by: [facility] [place] [address] Principal Product Manager: Thong Manzo M.D. Ph.D.; CLIA# [id number] 15 ADDITIONAL INFORMATION This test was developed and its performance characteristics determined by [facility] in a manner consistent with CLIA requirements. This test has not been cleared or approved by the U.S. Food and Drug Administration. 16 ADDITIONAL INFORMATION Testing performed by Inductively Coupled Plasma-Mass Spectrometry (ICP-MS). This test was developed and its performance characteristics determined by [facility] in a manner consistent with CLIA requirements. This test has not been cleared or approved by the U.S. Food and Drug Administration. 17 ADDITIONAL INFORMATION This test was developed and its performance characteristics determined by [facility] in a manner consistent with CLIA requirements. This test has not been cleared or approved by the U.S. Food and Drug Administration. 18 ADDITIONAL INFORMATION This test was developed and its performance characteristics determined by [facility] in a manner consistent with CLIA requirements. This test has not been cleared or approved by the U.S. Food and Drug Administration. 19 Test Performed by: [facility] [address] [place] [address] Principal Product Manager: Thong Manzo M.D. Ph.D.; CLIA# [id number] 20 Results suggest recent infection. 21 ADDITIONAL INFORMATION This test was developed and its performance characteristics determined by [facility] in a manner consistent with CLIA requirements. This test has not been cleared or approved by the U.S. Food and Drug Administration. Test Performed by: [facility] [address] [place] [address] Principal Product Manager: Thong Manzo M.D. Ph.D.; CLIA# [id number] 22 REFERENCE VALUE <=13 (Fasting) ADDITIONAL INFORMATION This test was developed and its performance characteristics determined by [facility] in a manner consistent with CLIA requirements. This test has not been cleared or approved by the U.S. Food and Drug Administration. Test Performed by: [facility] - [address] [address] Principal Product Manager: Thong Manzo M.D. Ph.D.; CLIA# [id number] 23 REFERENCE VALUE <=1.0 (Negative) 24 REFERENCE VALUE <20.0 (Negative) 25 Tests for antibodies to dsDNA and SAMIR antigens are not performed automatically unless the CHIRAG result is > or = 3.0 U. Studies performed at [facility] indicate that positive CHIRAG results <3.0 U are rarely accompanied by positive second order tests. Test Performed by: [facility] - [facility] [address] [place] [address] Principal Product Manager: Thong Manzo M.D. Ph.D.; CLIA# [id number] 26 Because ethnic data is not always readily [...] 15-29 5 Kidney failure <15 (or dialysis) 27 PT DOESNT WANT TO HAVE VD25 DONE, DUE TO ABN. [id number] Procedures Description No Information Available Medical Devices Description No Information Available Encounters Type Date Location Provider Dx Diagnosis Office Visit 08/25/2019 [facility] Internal Maris Bolanos, R53.82 Chronic fatigue, 10:20a Medicine - Suite DO unspecified R Z12.11 Encounter for screening for malignant neoplasm of colon N18.1 Chronic kidney disease, stage 1 Office Visit 06/17/2019 [facility] Kit Kinney R76.8 Other specified 9:10a For Infectious Jose Blevins abnormal Diseases immunological findings in serum Office Visit 06/03/2019 [facility] R53.82 Chronic fatigue, 11:00a [facility] DUNG Mendoza unspecified G89.4 Chronic pain syndrome Office Visit 04/29/2019 11:40a [facility] Internal Cameron Gay R53.82 Chronic fatigue, Medicine - [facility] MASSEUR/MASSEUSE unspecified G89.4 Chronic pain syndrome [facility] R53.82 Chronic fatigue, [facility] MASSEUR/MASSEUSE unspecified G89.4 Chronic pain syndrome K58.8 Other irritable bowel syndrome F41.9 Anxiety disorder, unspecified R51 Headache Office Visit 03/25/2019 12:00p [facility] Internal Garrett Anderson MD F41.1 Generalized anxiety Medicine - Suite disorder R R53.83 Other fatigue F43.12 Post-traumatic stress disorder, chronic R63.6 Underweight Z12.11 Encounter for screening for malignant neoplasm of colon Assessments Date Code Description Provider 08/25/2019 R53.82 Chronic fatigue, unspecified Maris Senvickie, DO 08/25/2019 Z12.11 Encounter for screening for malignant Maris SenDO vickie neoplasm of colon 08/25/2019 N18.1 Chronic kidney disease, stage 1 Marisewelina Bolanos, DO 06/17/2019 R76.8 Other specified abnormal immunological Kit Blevins M.D. findings in serum 06/03/2019 R53.82 Chronic fatigue, unspecified Soraya Mendoza NP 06/03/2019 G89.4 Chronic pain syndrome Soraya Mendoza, MASSEUR/MASSEUSE 04/29/2019 R53.82 Chronic fatigue, unspecified Cameron Victor Hugo, MASSEUR/MASSEUSE 04/29/2019 G89.4 Chronic pain syndrome Cameron Victor Hugo, MASSEUR/MASSEUSE 04/07/2019 R53.82 Chronic fatigue, unspecified Soraya Mendoza, MASSEUR/MASSEUSE 04/07/2019 G89.4 Chronic pain syndrome Soraya Mendoza, MASSEUR/MASSEUSE 04/07/2019 K58.8 Other irritable bowel syndrome Soraya Mendoza, MASSEUR/MASSEUSE 04/07/2019 F41.9 Anxiety disorder, unspecified Soraya Mendoza, MASSEUR/MASSEUSE 04/07/2019 R51 Headache Soraya Mendoza, MASSEUR/MASSEUSE 03/25/2019 F41.1 Generalized anxiety disorder Garrett Anderson MD 03/25/2019 R53.83 Other fatigue Garrett Anderson MD 03/25/2019 F43.12 Post-traumatic stress disorder, chronic Garrett Anderson MD 03/25/2019 R63.6 Underweight Garrett Anderson MD 03/25/2019 Z12.11 Encounter for screening for malignant Garrett Anderson MD neoplasm of colon Plan of Treatment Future Appointment(s):09/26/2019 12:00 pm - Ion Dumont M.D. at [facility]08/25/2019 - EVER Will53.82 Chronic fatigue, unspecifiedReferral:Ion Dumont MD, VwzdssteylhkA04.11 Encounter for screening for malignant neoplasm of rdqesB51.1 Chronic kidney disease, stage 1Comments:It would be helpful to get records [place]Lida Salmon MD, Nephrology Functional Status Description No Information Available Mental Status Description No Information Available Referrals Refer to Reason for Referral Status Appt Date Ion Dumont MD Created [address] [place] [address] [place] [address] [phone] Lida Salmon MD Created [address] [place] [id number] [phone] Kit Blevins MD positive Bartonella Received Complete 06/17/2019 [address] [place] [address] [place] [address] [phone]
--- OUTSIDE RECORDS SUMMARY | 2019-09-13 10:32 | XMS REPORT ---
:1960 Author Organization [facility] Care Team Providers Name Role Phone ERIC CANSECO Primary Care Physician Unavailable Allergies, Adverse Reactions, [...] mg completed for 3 02-02 tablet day(s) Remeron [id number] RxNorm 2019- oral 15 mg 1 completed Take 1 tablet 03-04 tablet at bedtime at for 30 day(s) bedtime lorazepam RxNorm 2019- oral 1 mg active for 30 04-08-14 tablet day(s) lorazepam RxNorm 2019- oral 1 mg completed for 3 02-02 tablet day(s) mirtazapine 608600 RxNorm 2019- oral 15 mg 1 active Take 1 1/2 04-08 1/2 tablet by tablet mouth at at bedtime for bedtime 30 day(s) lorazepam RxNorm 2019- oral 1 mg completed for 3 02-02- tablet day(s) mirtazapine 632168 RxNorm 2019- oral 15 mg completed for 30 04-08 tablet day(s) Problems Problem Name Code CodeSystem Alternate Alternate Start End Status Narrative Code CodeSystem Date Date Recurrent 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 SNOMED-CT 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, current episode moderate Post-traumat 51798342 SNOMED-CT 0 Active ic stress 8-05 disorder, unspecified Relevant diagnostic tests/laboratory data Narrative No Information Procedures Procedure Code CodeSystem Target Date of Status Service Device Device Device Name Site Procedure Delivery Code Name UID Location SNOMED-CT () 2019-02-10 complete Mental d Health- Bry [address], [id number] Psychiatric [id number] SNOMED-CT () 2019-03-04 complete Mental diagnostic 85 d Health- evaluation Bry with medical [address], [id number] [id number] Psychotherap [id number] SNOMED-CT () 2019-03-04 complete Mental y, 45 04 d Health- minutes with [facility] patient [address], [id number] [phone] Psychotherap [id number] SNOMED-CT () 2019-03-27 complete Mental y, 45 04 d Health- minutes with [facility] patient [address], [id number] [phone] Office or [id number] SNOMED-CT () 2019-04-08 complete Mental other 7 d Health- outpatient Bry visit for [address], established [id number] patient, [phone] which requires at least 2 of these 3 gaffney components: An expanded problem focused history; An expanded problem focused examination; Medical decision making of low SNOMED-CT () 2019-04-08 complete Mental d Health- [address], [id number] [phone] Psychotherap 702265 SNOMED-CT () 2019-04-18 complete Mental y, 45 04 d Health- minutes with [facility] patient [address], [id number] [phone] SNOMED-CT () 2019-05-02 complete Mental d Health- [address], [id number] [phone] Office or [id number] SNOMED-CT () 2019-05-06 complete Mental other 6 d Health- outpatient [facility] visit for [address], established [id number] patient, [id number] which requires at least 2 of these 3 gaffney components: A problem focused history; A problem focused examination; Straightforw dereck medical decision making. Counselin Psychotherap 578574 SNOMED-CT () 2019-05-13 complete Mental y, 45 04 d Health- minutes with [facility] patient [address], [id number] [phone] Office or [id number] SNOMED-CT () 2019-06-05 complete Mental other 6 d Health- outpatient Bry visit for [address], established [id number] patient, [id number] which requires at least 2 of these 3 gaffney components: A problem focused history; A problem focused examination; Straightforw dereck medical decision making. Counselin Psychotherap 014322 SNOMED-CT () 2019-06-12 complete Mental y, 45 04 d Health- minutes with [facility] patient [address], [id number] [phone] SNOMED-CT () 2019-06-16 complete Mental d Health- Bry [address], [id number] [phone] Psychotherap [id number] SNOMED-CT () 2019-06-24 complete Mental y, 45 04 d Health- minutes with [facility] patient [address], [id number] [phone] Office or [id number] SNOMED-CT () 2019-07-01 complete Mental other 6 d Health- outpatient [facility] visit for [address], [facility] [phone] patient, [phone] which requires at least 2 of these 3 gaffney components: A problem focused history; A problem focused examination; Straightforw dereck medical decision making. Counselin Psychotherap 300553 SNOMED-CT () 2019-07-09 complete Mental y, 45 04 d Health- minutes with [facility] patient [address], [id number] [phone] Psychotherap [id number] SNOMED-CT () 2019-07-14 complete Mental y, 45 04 d Health- minutes with [facility] patient [address], [id number] [phone] Psychotherap [id number] SNOMED-CT () 2019-08-05 complete Mental y, 45 04 d Health- minutes with [facility] patient [address], [id number] [phone] Office or [id number] SNOMED-CT () 2019-08-05 complete Mental other 6 d Health- outpatient [facility] visit for [address], [place], established [id number] patient, [phone] which requires at least 2 of these 3 gaffney components: A problem focused history; A problem focused examination; Straightforw dereck medical decision making. Counselin Psychotherap 578517 SNOMED-CT () 2019-08-19 complete Mental y, 45 04 d Health- minutes with [facility] patient [address], [id number] [phone] Psychotherap [id number] SNOMED-CT () 2019-08-15 complete Mental y, 45 04 d Health- minutes with [facility] patient [address], [id number] [phone] Encounters/Encounter Diagnoses Encounter Name Encounter Diagnosis Diagnosis Diagnosis Date of Service Code Code Name CodeSystem Diagnosis Delivery Location Psychotherapy - 05168 [id number] Post-traumati SNOMED-CT 2019-08-19 Behavioral Individual 30 c stress Health min disorder, [place] [address] unspecified [place], [place], [id number] Vital Signs No Information Social History Element Description Description Start End Code CodeSystem AdditionalInfo Date Date SexAssignedAtBirth Female 1960-0 F AdministrativeGender 4-13 Hospital Discharge Instructions Reason For Referral Medical Equipment FDA Assessments
--- NOTE | 2019-09-13 10:43 | ED ---
Complex/Multi-Sys Presentation - HPI Summary HPI Summary: Patient is a 58 y/o F presenting to [facility] with complaints of non-productive cough, a burning/sharp sensation in her chest when coughing, sore throat, dysuria, increased frequency of urination (twice every 30 minutes) and chills. She reports that this set of Sx onset around a week ago. She states that the cough has lessened somewhat since onset. Patient also states that she has been feeling "achy" for the past month. No N/V/D or abdominal pain noted but patient states that she has been constipated. No pain to chest or abdomen with palpation reported. Hx of UTIs reported. 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 Home medications and allergies are reviewed. Patient also states that she has been taking cat's claw. Home Medications Medication Instructions Recorded Confirmed Type LORazepam TAB(*) [Ativan 1 MG TAB 1 mg PO TID PRN MDD 3 mg 07/24/19 08/16/19 History (*)] Mirtazapine TAB* [Remeron TAB*] 22.5 mg PO BEDTIME 07/24/19 08/16/19 History Nystatin CREAM* [Nystatin Cream*] 1 applic TOPICAL BID 07/24/19 08/16/19 History Aspirin TAB* [Aspirin 325 MG TAB*] 325 mg PO DAILY 08/16/19 08/16/19 History Doxycycline Hyclate 100 mg PO BID 7 Days #14 tablet 08/16/19 Rx - History Of Current Complaint Chief Complaint: EDGeneral Time Seen by Provider: 09/13/19 10:39 Hx Obtained From: Patient Onset/Duration: Lasting Weeks, Still Present Timing: Weeks Location: Pain At: - throat, chest, diffuse body aches Character: Sharp Associated Signs And Symptoms: Positive: Cough, Chest Pain, Dysuria, Other - positive - sore throat, increased frequency of urination, chills, body aches. Negative: Nausea, Vomiting, Diarrhea, Abdominal Pain - Allergies/Home Medications Allergies/Adverse Reactions: Allergies Allergy/AdvReac Type Severity Reaction Status Date / Time No Known Allergies Allergy Verified 09/13/19 10:12 Home Medications: Home Medications LORazepam TAB(*) [Ativan 1 MG TAB (*)] 1 mg PO TID PRN MDD 3 mg 07/24/19 [ History Confirmed 08/16/19] Mirtazapine TAB* [Remeron TAB*] 22.5 mg PO BEDTIME 07/24/19 [History Confirmed 08/16/19] Nystatin CREAM* [Nystatin Cream*] 1 applic TOPICAL BID 07/24/19 [History Confirmed 08/16/19] Aspirin TAB* [Aspirin 325 MG TAB*] 325 mg PO DAILY 08/16/19 [History Confirmed 08/16/19] Doxycycline Hyclate 100 mg PO BID 7 Days #14 tablet 08/16/19 [Rx] PMH/Surg Hx/FS Hx/Imm Hx Neurological History: Reports: Hx Headaches, Hx Migraine Psychiatric History: Reports: Hx Anxiety, Other Psychiatric Issues/Disorders - insomnia, h/o trauma per pt - Cancer History Hx Chemotherapy: No Hx Radiation Therapy: No - Surgical History Surgery Procedure, Year, and Place: none Infectious Disease History: No Infectious Disease History: Denies: Traveled Outside the [place] in Last 30 Days - Family History Known Family History: Positive: Other - CA, heart disease - Social History Alcohol Use: Occasionally Hx Substance Use: No - per pt, takes daily rx'd ativan Substance Use Type: Reports: None Hx Tobacco Use: No Smoking Status (MU): Never Smoked Tobacco Review of Systems Positive: Chills Positive: Sore Throat Positive: Chest Pain Positive: Cough Gastrointestinal: Other - positive - constipation Negative: Abdominal Pain, Vomiting, Diarrhea, Nausea Positive: dysuria, frequency - increased frequency of urination Positive: Myalgia - body aches All Other Systems Reviewed And Are Negative: Yes Physical Exam - Summary Physical Exam Summary: Constitutional: Well-developed, Well-nourished, Alert. (-) Distressed Skin: Warm, Dry HENT: Normocephalic; Atraumatic Eyes: Conjunctiva normal Neck: Musculoskeletal ROM normal neck. (-) JVD, (-) Stridor, (-) Tracheal deviation Cardio: Rhythm regular, rate normal, Heart sounds normal; Intact distal pulses; The pedal pulses are 2+ and symmetric. Radial pulses are 2+ and symmetric. (-) Murmur Pulmonary/Chest wall: Effort normal. (-) Respiratory distress, (-) Wheezes, (-) Rales Abd: Soft, (-) tenderness, (-) Distension, (-) Guarding, (-) Rebound Musculoskeletal: (-) Edema Lymph: (-) Cervical adenopathy Neuro: Alert, Oriented x3 Psych: Mood and affect Normal Triage Information Reviewed: Yes Vital Signs On Initial Exam: Initial Vitals Temp Pulse Resp BP Pulse Ox 98.8 F 85 16 136/78 97 09/13/19 10:09 09/13/19 10:09 09/13/19 10:09 09/13/19 10:09 09/13/19 10:09 Vital Signs Reviewed: Yes Procedures - Sedation Patient Received Moderate/Deep Sedation with Procedure: No Diagnostics - Vital Signs Vital Signs Temp Pulse Resp BP Pulse Ox 09/13/19 10:09 98.8 F 85 16 136/78 97 - Laboratory Lab Statement: Any lab studies that have been ordered have been reviewed, and results considered in the medical decision making process. Complex Multi-Symp Course/Dx Assessment/Plan: Patient is a 58 y/o F presenting to [facility] with complaints of non-productive cough, a burning/sharp sensation in her chest when coughing, sore throat, dysuria, increased frequency of urination (twice every 30 minutes) and chills. She reports that this set of Sx onset around a week ago. She states that the cough has lessened somewhat since onset. Patient also states that she has been feeling "achy" for the past month. No N/V/D or abdominal pain noted but patient states that she has been constipated. No pain to chest or abdomen with palpation reported. Hx of UTIs reported. Physical exam is unremarkable. During ED course, patient received 60 mg IM Toradol. UA showed 3+ blood, 3+ RBC , trace ketones. Results discussed with the patient. She was discharged to home and will follow up with her PCP and keep her drywall hanger framer appointment. - Diagnoses Provider Diagnoses: Myalgia, Dysuria, URI (upper respiratory infection) Discharge ED - Sign-Out/Discharge Documenting (check all that apply): Patient Departure - discharge - Discharge Plan Condition: Stable Disposition: HOME Patient Education Materials: Dysuria (ED), Musculoskeletal Pain (ED) Referrals: Garrett Anderson MD [Primary Care Provider] - Additional Instructions: KEEP YOUR RHEUMATOLOGY APPOINTMENT SCHEDULED. FOLLOW UP WITH YOUR PRIMARY CARE PHYSICIAN, FIRST AVAILABLE APPOINTMENT YOU CAN OBTAIN. PLEASE RETURN TO ED FOR ANY CONCERNING SYMPTOMS. - Billing Disposition and Condition Condition: STABLE Disposition: Home - Attestation Statements Document Initiated by Scribe: Yes Documenting Scribe: CASSANDRA AUSTIN Provider For Whom Scribe is Documenting (Include Credential): ZENAIDA LEZAMA DO Scribe Attestation: I, CASSANDRA AUSTIN, scribed for ZENAIDA LEZAMA DO on 09/13/19 at 1539. Scribe Documentation Reviewed: Yes Provider Attestation: The documentation as recorded by the CASSANDRA langley accurately reflects the service I personally performed and the decisions made by me, ZENAIDA LEZAMA DO Status of Scribe Document: Viewed
[2019-09-13 11:00] LABS: Urine Appearance Clear; Urine Bilirubin Negative (Negative); Urine Blood 3+ (Negative); Urine Color Yellow; Urine Glucose Negative (Negative); Urine Ketones Trace (Negative); Urine Nitrite Negative (Negative); Urine Protein Negative (Negative); Urine Specific Gravity 1.008 (1.010-1.030); Urine Urobilinogen Negative (Negative)
[2019-09-13] MEDS ORDERED: Ketorolac *IM* INJ* 60 MG/2 ML VIAL IM ONE (11:03)
[2019-09-13 11:25] LABS: Urine Bacteria Absent (Absent); Urine Red Blood Cell 3+(>10/hpf) (Absent); Urine White Blood Cell Absent (Absent)
[2019-09-13 12:38] VITALS: BP 104/77
== END 2019-09-13 12:35 | disposition home or self-care (01) ==
LOC: ED 10:04
DX: J06.9 Acute upper respiratory infection, unspecified (principal); R30.0 Dysuria; J02.9 Acute pharyngitis, unspecified; R51 Headache; F41.9 Anxiety disorder, unspecified; R07.9 Chest pain, unspecified; Z79.899 Other long term (current) drug therapy; Z79.82 Long term (current) use of aspirin
CPT/HCPCS: 81003; 81015; 96372; 99283; J1885

== ENCOUNTER 2019-09-27 08:17 | Emergency (ER) | payer MEDICARE, MEDICAID ==
[2019-09-27] MEDS ORDERED: Acetaminophen TAB* 325 MG PO ONE (08:53)
[2019-09-27 09:53] VITALS: BP 133/71
--- NOTE | 2019-09-27 12:31 | ED ---
Headache - HPI Summary HPI Summary: This patient is 58-year-old female presenting to the ED with multiple complaints. Patient states she has chronic Lyme disease and needs antibiotics. She also had recent blood work this morning ordered from Dr. Dumont and states she would like the results. She is currently complaining of a MONTERROSO above her R eye. Continues to state "I'm sick and no one will believe me." Also stating nobody believes she has chronic lyme disease even though tests have been negative. She states there was a positive bartonella and has been on doxycycline for this. She is out. Stating she would like more and feels Dr. Dumont might have sent her in a prescription. Also continues to c/o the care here in [place] and how noone believes how sick she is. She would like to be referred to a lyme specialist in [facility]. I have discussed with the patient that I am able to help with her MONTERROSO, but for her chronic lyme and labs results she will need to f/u with Dr. Dumont. - History Of Current Complaint Chief Complaint: EDDizziness Stated Complaint: palpatations/headache per pt Time Seen by Provider: 09/27/19 08:30 Hx Obtained From: Patient Onset/Duration: Gradual Onset Initially Headache Was: Initial Pain Scale(0-10)= - 8 Currently Pain Is: Current Pain Scale(0-10)= - 8 Timing: Constant Aggravating Factor: Nothing Allevating Factors: Nothing Associated Signs And Symptoms: Negative - Risk Factors SAH Risk Factors: Negative Meningitis Risk Factors: Negative SDH Risk Factors: Negative - Allergies/Home Medications Allergies/Adverse Reactions: Allergies Allergy/AdvReac Type Severity Reaction Status Date / Time No Known Allergies Allergy Verified 09/27/19 08:26 Home Medications: Home Medications LORazepam TAB(*) [Ativan 1 MG TAB (*)] 1 mg PO TID PRN MDD 3 mg 07/24/19 [ History Confirmed 08/16/19] Mirtazapine TAB* [Remeron TAB*] 22.5 mg PO BEDTIME 07/24/19 [History Confirmed 08/16/19] Nystatin CREAM* [Nystatin Cream*] 1 applic TOPICAL BID 07/24/19 [History Confirmed 08/16/19] Aspirin TAB* [Aspirin 325 MG TAB*] 325 mg PO DAILY 08/16/19 [History Confirmed 08/16/19] Doxycycline Hyclate 100 mg PO BID 7 Days #14 tablet 08/16/19 [Rx] PMH/Surg Hx/FS Hx/Imm Hx Previously Healthy: Yes Neurological History: Reports: Hx Headaches, Hx Migraine Psychiatric History: Reports: Hx Anxiety, Other Psychiatric Issues/Disorders - insomnia, h/o trauma per pt - Cancer History Hx Chemotherapy: No Hx Radiation Therapy: No - Surgical History Surgery Procedure, Year, and Place: none - Immunization History Hx Pertussis Vaccination: No Immunizations Up to Date: Yes Infectious Disease History: No Infectious Disease History: Denies: Traveled Outside the [place] in Last 30 Days - Family History Known Family History: Positive: Unknown, Other - CA, heart disease - Social History Occupation: Unemployed Lives: Alone Alcohol Use: Occasionally Hx Substance Use: No - per pt, takes daily rx'd ativan Substance Use Type: Reports: None Hx Tobacco Use: No Smoking Status (MU): Never Smoked Tobacco Review of Systems Negative: Fever, Chills, Fatigue, Skin Diaphoresis Negative: Palpitations, Chest Pain Negative: Shortness Of Breath, Cough Genitourinary: Negative Positive: no symptoms reported, see HPI Negative: Arthralgia, Myalgia Skin: Negative Negative: Rash, Bruising Positive: Headache Positive: Anxious All Other Systems Reviewed And Are Negative: Yes Physical Exam Triage Information Reviewed: Yes Vital Signs On Initial Exam: Initial Vitals Temp Pulse Resp BP Pulse Ox 98.0 F 83 16 130/94 99 09/27/19 08:20 09/27/19 08:20 09/27/19 08:20 09/27/19 08:20 09/27/19 08:20 Vital Signs Reviewed: Yes Appearance: Positive: Thin - appears very anxious Skin: Positive: Warm, Skin Color Reflects Adequate Perfusion Head/Face: Positive: Normal Head/Face Inspection Eyes: Positive: EOMI, Conjunctiva Clear Neck: Positive: Supple, No Lymphadenopathy Respiratory/Lung Sounds: Positive: Clear to Auscultation, Breath Sounds Present Cardiovascular: Positive: RRR, Pulses are Symmetrical in both Upper and Lower Extremities. Negative: Leg Edema Left, Leg Edema Right Musculoskeletal: Positive: Normal, Strength/ROM Intact Neurological: Positive: Speech Normal Psychiatric: Positive: Anxious AVPU Assessment: Alert Procedures - Sedation Patient Received Moderate/Deep Sedation with Procedure: No Diagnostics - Vital Signs Vital Signs Temp Pulse Resp BP Pulse Ox 09/27/19 09:53 99.0 F 75 16 133/71 96 09/27/19 08:20 98.0 F 83 16 130/94 99 - Laboratory Lab Statement: Any lab studies that have been ordered have been reviewed, and results considered in the medical decision making process. Headache Course/Dx - Course Course Of Treatment: Patient is given tylenol in the ED for her headache. She states this resolved her symptoms. She states anytime she is off her doxycycline for even a short period of time, she gets severe headaches and other symptoms. Patient does have severe anxiety, however states her symptoms are related to her doxycycline and how she is "very sick." I have advised her to take Tylenol for any headaches but she will need to follow up with a Lyme disease specialist in next the at her leisure and I am unable to send a referral. She will f/u with Dr. Dumont regarding her labs. - Diagnoses Provider Diagnoses: Headache, Anxiety about health Discharge ED - Sign-Out/Discharge Documenting (check all that apply): Patient Departure - Discharge Plan Condition: Stable Disposition: HOME Referrals: Maris Bolanos DO [Primary Care Provider] - Ion Dumont MD [Medical Doctor] - Additional Instructions: Please follow up with Dr. Dumont regarding your testing you had done today - Billing Disposition and Condition Condition: STABLE Disposition: Home
== END 2019-09-27 09:53 | disposition home or self-care (01) ==
LOC: ED 08:17
DX: A69.20 Lyme disease, unspecified (principal); R51 Headache; F41.9 Anxiety disorder, unspecified; Z79.82 Long term (current) use of aspirin; E55.9 Vitamin D deficiency, unspecified; A93.8 Other specified arthropod-borne viral fevers; M54.6 Pain in thoracic spine; G89.4 Chronic pain syndrome
CPT/HCPCS: 93005; 99282; A9270-GY